=== PATIENT | female | born 1985 | race Caucasian/White ===

== ENCOUNTER 2022-04-09 10:18 | Emergency (ER) | payer OTHER, SELFPAY ==
[2022-04-09] VITALS (7 sets, daily range): BP systolic 100–125; BP diastolic 56–82; PULSE 85–102; RESP 16–21; TEMP 36.9–37.6; O2SAT 91–98; BMI 28.8
--- NOTE | ~2022-04-09 | CT_ITS ---
EXAMINATION: CT ANGIOGRAM OF THE CHEST WITH AND WITHOUT CONTRAST (CT PULMONARY ANGIOGRAM FOR PE) CLINICAL INFORMATION: Reason for Exam COVID-19, increased chest pain, high D-dimer COMPARISON: None TECHNIQUE: Prior to contrast administration, noncontrast localization images were obtained. Subsequently, multidetector volumetric imaging was performed from the thoracic inlet to below the diaphragms following the administration of 80 mL Omnipaque 350 intravenous contrast. No contrast reaction reported Sagittal, coronal, and MIP oblique sagittal reformatted images were obtained on the CT workstation, uploaded to PACS, and reviewed. This CT examination was performed using dose optimization techniques as appropriate, variously including the following: *Automated exposure control *Adjustment of mA and/or kV according to patient size (this includes techniques or standardized protocols for targeted exams where dose is matched to indication/reason for exam; i.e. extremities or head) *Use of iterative reconstruction technique Total exam dose-length product 227 mGy-cm FINDINGS: QUALITY OF STUDY/CONTRAST BOLUS: Satisfactory. PULMONARY ARTERIES: No central or segmental pulmonary emboli. THORACIC AORTA: No aneurysm or dissection. LUNG: There is mild atelectatic changes or scarring in both lung bases. There is groundglass attenuation in bilateral upper lobe anterior segment, question low-grade inflammatory or infectious etiology. PLEURA: No pleural effusion or pneumothorax. MEDIASTINUM: Normal heart size. No pericardial effusion. There are small shotty lymph nodes in the para-aortic and subcarinal space. There is a prominent anterior thymic soft tissue. No evidence of septal bowing or right heart strain. CHEST WALL/AXILLA: No axillary or internal mammary lymphadenopathy. OSSEOUS STRUCTURES: No acute or suspicious osseous abnormality. UPPER ABDOMEN: Unremarkable. No reflux of contrast into the hepatic veins to suggest elevated right heart pressures. CT/CT angio chest PE protocol IMPRESSION: No evidence of PE. No evidence of dissection or aneurysm. Nonspecific small mediastinal lymph nodes Bibasilar and and bilateral upper lobe anterior segment inflammatory process/atelectasis.. VTE: negative
--- NOTE | ~2022-04-09 | XR_ITS ---
EXAMINATION: XR CHEST CLINICAL INFORMATION: Covid positive and cough with chest pain COMPARISON: None TECHNIQUE: Frontal view of the chest was obtained. FINDINGS: The lungs are well-expanded and clear of acute acute pneumonic process. There is increased interstitial markings but no consolidation or pleural effusion. Heart size and perivascular is normal. No gross bony abnormality. XR/XR chest 1V IMPRESSION: Bilateral increase interstitial markings question interstitial pneumonitis. There is no consolidation or pleural effusion.
--- NOTE | 2022-04-09 11:56 | ECG_ITS ---
Test Reason : SOB Blood Pressure : / mmHG Vent. Rate : 094 BPM Atrial Rate : 094 BPM P-R Int : 160 ms QRS Dur : 080 ms QT Int : 346 ms P-R-T Axes : 071 083 065 degrees QTc Int : 432 ms Normal sinus rhythm Possible Left atrial enlargement Borderline ECG When compared with ECG of 01-JAN-2018 01:17, No significant change was found Referred By: Hermann Maxwell Electronically Signed By:ALFIE BRAVO
--- NOTE | 2022-04-09 12:01 | ED.URI ---
HPI - URI/Sore Throat General Chief Complaint: Upper Respiratory Symptoms Stated Complaint: SOB, +COVID Time Seen by Provider: 04/09/22 11:00 Source: patient Mode of arrival: ambulatory Limitations: no limitations History of Present Illness HPI Narrative: 36-year-old female who presents emergency department for evaluation shortness of breath, cough, chest pain and fever. The patient states that she was vaccinated with the Moderna COVID-19 vaccine x2 but did not receive a booster shot. She was diagnosed COVID-19 infection on 03/21/2022 (19 days) prior to evaluation. She states that her symptoms were improving but seemed to get worse proximally 5 days prior. She states that she is having shortness of breath his significant dyspnea on exertion. She continues to have fever as high as 101.9 degrees over the last 2 days. She states she has a cough which is occasionally productive of thick yellow sputum. Over the past 2 days she developed pain across her upper back which is new. She states the pain is a constant sharp pain which is 7/10. The pain is 10/10 with coughing and with taking a deep breath. She denied nausea, vomiting or diarrhea. She states she feels fatigued and her body aches. She was concerned that her symptoms were getting worse therefore she called an ambulance and came to the emergency department for evaluation. MD elicited complaint: other (Posterior chest pain) Pertinent past history: other (COVID-19 positive 03/21/2022) Onset (ago): day(s) (Nineteen) Consistency: constant Severity: severe Pain scale (0-10): 10 Description of mucous: green Able to tolerate fluids by mouth: Yes Exacerbating factors: exertion and deep breaths Relieving factors: nothing Context: other (COVID-19 box) Associated symptoms: fever, chills, myalgias, rhinorrhea, cough, chest pain and shortness of breath Treatments prior to arrival: acetaminophen and cold medicine Related Data Previous Rx's Medication Instructions Recorded albuterol sulfate 2.5 mg (3 mL) INHALATION Q4-6H PRN 04/09/22 #75 ml azithromycin 250 mg tablet See Rx Instructions .ROUTE 04/09/22 (Zithromax Z-Geovanni) .COMPLEX #6 tab morphine 15 mg immediate release 15 mg PO Q4-6H PRN #10 tab 04/09/22 tablet Allergies Allergy/AdvReac Type Severity Reaction Status Date / Time tramadol Allergy Severe stomach Verified 10/07/21 15:50 pains amoxicillin Allergy Mild negatively Verified 10/07/21 15:50 afftect brains. Review of Systems Review of Systems: Yes all other systems are reviewed and are negative Neurologic: Reports Abnormal speech present COUNT INCLUDES THE [facility] Past Medical History COUNT INCLUDES THE [facility] Narrative: Past medical history: Uterine fibroid, back pain secondary to disc disease. Past surgical history: L5-S1 disc surgery 1 and half years prior. Social history: She does smoke cigarettes but she has been cutting down and smokes 1-3 cigarettes per day. She started smoking when she was 13 years old (24 years). She she denies alcohol use. She occasionally smokes marijuana. Social History Social History Patient Tobacco Use Status: Current everyday Tobacco user Use of substances other than those prescribed or required for medical reasons: No Advance Directives: No Advance Directives Information Provided: No Physical Exam Vital Signs: Vital Signs: Last Vital Signs Temp 98.4 F 04/09/22 15:54 Pulse 92 04/09/22 15:54 Resp 16 04/09/22 15:57 BP 101/56 L 04/09/22 15:54 Pulse Ox 95 04/09/22 15:54 BMI result Body Mass Index 28.8 Const: Other: Awake, alert, female patient, she is coughing frequently during my interview and she appears to be in distress when she coughs secondary to her chest pain, she answers all questions appropriately and speaks in full sentences. HEENT: Head: Yes normal to inspection, Yes normocephalic and Yes atraumatic Ears: hearing grossly normal bilaterally General nose exam: Normal external nose present Face and sinus: Yes normal facial exam Mouth: Normal oral and palatal mucosa present, lip normal, tongue normal, oropharynx normal and moist mucous membranes Throat: Yes posterior oropharynx normal, Yes tonsils normal and Yes uvula midline Eyes: General: appearance normal, both eyes and all related structures Eyelids: Yes eyelids normal Conjunctivae: conjunctivae normal Sclerae: sclerae normal Corneas: corneas normal Pupils: Equal, round and reactive pupils present Neck: Neck: Yes normal visual inspection, Yes no lymphadenopathy, Yes trachea midline and Yes supple Thyroid: Thyroid normal Lymphatic: no lymphadenopathy noted Chest: Chest palpation & inspection: normal inspection of the chest and tenderness (Left posterior chest tenderness) Resp: Effort & Inspection: normal respiratory effort and able to speak in complete sentences Auscultation: rales (Diffuse) and rhonchi (Diffuse) Cardio: Rate: tachycardic Rhythm: regular rhythm Heart sounds: S1 normal heart sound present, S2 normal heart sound present and no murmurs GI: Inspection: Yes normal to inspection Palpation (GI): Soft to palpation, nontender and No hepatosplenomegaly present Auscultation: normal bowel sounds : General: Yes no CVA tenderness Back/Spine/Pelvis: Back: no CVA tenderness Thoracic/Lumbar Spine: thoracic and lumbar spine normal to inspection Skin: General skin exam: no rashes or lesions noted, no erythema and no jaundice Lesions: no lesions Rashes: no rashes Trauma: no lacerations or abrasions Wounds: no wounds Neuro: General: moves all extremities and no focal motor deficits Cranial nerves: Yes Equal, round and reactive pupils present Cognition (Neuro): normal cognition Speech: Abnormal speech present Motor exam (neuro): Motor abnormalities not present Extrem: General: Yes normal to inspection, Yes no pedal edema and Yes no calf tenderness Right upper extremity: normal to inspection Left upper extremity: normal to inspection Right lower extremity: normal to inspection Left lower extremity: normal to inspection Psych: Appearance: grossly normal Mental Status: mental status grossly normal Speech and movement: Normal speech and movement present Affect: normal affect Attitude: cooperative Thought process: Normal thought process present Insight: Good insight present (Psych) Course Course Course Narrative: 36-year-old female who tested positive for COVID-19 on 03/21/2022 (19 days prior) with worsening symptoms x5 days. Patient complains of cough, fever, fatigue and posterior chest pain. The patient's vital signs did reveal an elevated pulse of 102 otherwise were unremarkable. The patient does have tenderness with palpation of her posterior thoracic chest, left greater than right, lungs revealed diffuse rhonchi and wheezing. Differential includes but is not limited to bacterial pneumonia, COVID-19 pneumonia, pulmonary embolism, pleurisy. Laboratory evaluation was ordered. I will obtain a chest x-ray and EKG. Patient's pain was treated with Toradol 30 mg IV and Tylenol 975 mg orally. She was also ordered to get normal saline x1 L. 1422: Laboratory evaluation: WBC low 3600, platelet count low 154,000, anemia with an H&H of 11.7 and 36.4. Absolute lymphocyte count was low at 300. D-dimer was elevated 306. Radiology evaluation: Chest x-ray concerning for bilateral increased interstitial markings. The patient did not get any relief of her chest pain with the above treatment. She was ordered to get morphine 4 mg IV. Given the change in her chest pain over the past several days and her elevated D-dimer, I am concerned that she might have a pulmonary embolism therefore I did order CT pulmonary angiogram PE protocol. Patient was also ordered to get antibiotics for possible interstitial pneumonia, she was given ceftriaxone 1 g IV and Zithromax 500 mg IV. 1624: The patient's CT pulmonary angiogram was negative for PE but she does have bilateral interstitial pneumonia. This is most likely secondary to COVID however given her acute change and concerned that she may have a bacterial infection. The patient was prescribed Zithromax Z-Geovanni and albuterol nebulizer solution. She was also advised to take Tylenol and ibuprofen for pain and for pain not relieved by these medications she was prescribed morphine. She was given printed and verbal instructions and discharged home. MDM - URI/Sore Throat Lab Data Attestation: I reviewed the patient's lab results. Result diagrams: 04/09/22 13:51 04/09/22 13:51 Labs: Lab Results 04/09/22 04/09/22 04/09/22 Range/Units 13:51 13:51 13:51 WBC 3.6 L (4.8-10.8) X10*3/uL RBC 4.32 (4.20-5.50) X10*6/uL Hgb 11.7 L (12.0-16.0) g/dl Hct 36.4 L (37.0-47.0) % MCV 84.3 (80.0-98.0) fL MCH 27.1 (27.0-33.0) pg MCHC 32.1 (31.0-35.0) g/dl RDW 13.2 (11.0-16.0) % Plt Count 154 L (160-400) X10*3/uL MPV 11.6 (9.4-12.3) fL Immature Gran % (Auto) 0.3 (0.0-0.4) % Neut % (Auto) 86.7 H (45-73) % Lymph % (Auto) 9.4 L (20-40) % Kimball % (Auto) 3.0 (2-11) % Eos % (Auto) 0.6 (0-4) % Baso % (Auto) 0.0 (0-2) % Lymph # (Auto) 0.3 L (1.2-4.9) X10*3/uL Kimball # (Auto) 0.1 (0.1-1.2) X10*3/uL Eos # (Auto) 0.0 (0.0-0.4) X10*3/uL Baso # (Auto) 0.0 (0.0-0.2) X10*3/uL Abs Immat Gran (auto) 0.01 (0.00-0.03) X10*3/uL Absolute Neuts (auto) 3.2 (2.0-8.3) x10*3/uL Absolute Nucleated RBC 0.000 (0.0-0.012) X10*3/uL Nucleated RBC % (auto) 0.0 (0.0-0.2) /100WBC PT 14.4 H (9.9-13.0) SEC INR 1.3 H (0.9-1.1) APTT 34.3 (24.1-38.0) SEC D-Dimer High Sensitivty 306 NG/ML Sodium 134 L (135-145) mmol/L Potassium 3.8 (3.3-5.1) mmol/L Chloride 106 (96-108) mmol/L Carbon Dioxide 21 L (22-29) mmol/L Anion Gap 11 L (12-20) BUN 9 (9-16) mg/dL Creatinine 0.74 (0.5-1.4) mg/dL Estim Creat Clear Calc 106.0 Estimated GFR > 60 Random Glucose 177 H (60-115) mg/dL Lactic Acid (0.5-2.0) mmol/L Calcium 8.3 L (8.4-10.2) mg/dL Total Bilirubin 0.3 (0.0-1.0) mg/dL AST 15 (5-31) U/L ALT 10 (0-31) U/L Alkaline Phosphatase 54 (39-117) U/L Total Creatine Kinase 45 (26-140) U/L Troponin I High Sens (<3.5-17.0) ng/L Total Protein 6.6 (6.5-8.0) g/dL Albumin 3.9 (3.5-5.0) g/dL Lipase 9 (8-78) U/L Beta HCG, Quant < 2 mIU/mL 04/09/22 04/09/22 Range/Units 13:51 13:51 WBC (4.8-10.8) X10*3/uL RBC (4.20-5.50) X10*6/uL Hgb (12.0-16.0) g/dl Hct (37.0-47.0) % MCV (80.0-98.0) fL MCH (27.0-33.0) pg MCHC (31.0-35.0) g/dl RDW (11.0-16.0) % Plt Count (160-400) X10*3/uL MPV (9.4-12.3) fL Immature Gran % (Auto) (0.0-0.4) % Neut % (Auto) (45-73) % Lymph % (Auto) (20-40) % Kimball % (Auto) (2-11) % Eos % (Auto) (0-4) % Baso % (Auto) (0-2) % Lymph # (Auto) (1.2-4.9) X10*3/uL Kimball # (Auto) (0.1-1.2) X10*3/uL Eos # (Auto) (0.0-0.4) X10*3/uL Baso # (Auto) (0.0-0.2) X10*3/uL Abs Immat Gran (auto) (0.00-0.03) X10*3/uL Absolute Neuts (auto) (2.0-8.3) x10*3/uL Absolute Nucleated RBC (0.0-0.012) X10*3/uL Nucleated RBC % (auto) (0.0-0.2) /100WBC PT (9.9-13.0) SEC INR (0.9-1.1) APTT (24.1-38.0) SEC D-Dimer High Sensitivty NG/ML Sodium (135-145) mmol/L Potassium (3.3-5.1) mmol/L Chloride (96-108) mmol/L Carbon Dioxide (22-29) mmol/L Anion Gap (12-20) BUN (9-16) mg/dL Creatinine (0.5-1.4) mg/dL Estim Creat Clear Calc Estimated GFR Random Glucose (60-115) mg/dL Lactic Acid 1.0 (0.5-2.0) mmol/L Calcium (8.4-10.2) mg/dL Total Bilirubin (0.0-1.0) mg/dL AST (5-31) U/L ALT (0-31) U/L Alkaline Phosphatase (39-117) U/L Total Creatine Kinase (26-140) U/L Troponin I High Sens < 3.5 (<3.5-17.0) ng/L Total Protein (6.5-8.0) g/dL Albumin (3.5-5.0) g/dL Lipase (8-78) U/L Beta HCG, Quant mIU/mL ECG Data Attestation: I personally reviewed and interpreted this ECG as follows: Interpretation: 1209: Normal sinus rhythm rate of 94, normal ID interval, QRS duration QTC interval, no ST segment elevation, no ST segment depression, no PACs, no PVCs, no T-wave abnormalities, this is a normal EKG. Discharge Plan Discharge Clinical Impression: COVID-19 virus infection, Acute interstitial pneumonia, Pleuritic chest pain Patient Disposition: Home, Self-Care Instructions: Pneumonia (ED), COVID-19 (Coronavirus Disease 2019) (ED) Additional Instructions: Your chest x-ray was consistent with pneumonia. The CT pulmonary angiogram of the chest did not reveal any blood clots (pulmonary emboli) but is consistent with pneumonia in both lungs. This could be caused by the COVID-19 virus or by a bacteria. Given your asthma, I am starting you on an antibiotic for possible bacterial pneumonia. You received 2 antibiotics in the emergency department ceftriaxone 1 g IV and Zithromax 500 mg IV. Take Zithromax Z-Geovanni as prescribed. Use the albuterol inhaler with a spacer, 2 puffs every 4-6 hours as needed for wheezing and shortness of breath Use the albuterol nebulizer solution every 4 hours as needed for shortness of breath. When you use the never eyes are you should use a and a room with the door closed and then open a window to air out the room after use the nebulizer. Take ibuprofen 600 mg pills, 1 pills every 6 hours as needed for pain or fever Take Tylenol (acetaminophen) 2 pills every 4-6 hours as needed for pain or. For pain not relieved by ibuprofen or Tylenol take morphine 15 mg pills, 1 pill every 4 hours as needed for pain. This medication will make you sleepy, do not drive or work while taking this medication. Morphine is a narcotic medication and can be addicting. If you are concerned about addiction you can ask the pharmacist for less pills or do not get this prescription filled. Follow-up with your doctor in 2 days. Please return to the emergency department if your symptoms get worse or if you develop any symptoms that are concerning to you. See work note Prescriptions: New albuterol sulfate 2.5 mg /3 mL (0.083 %) solution for nebulization 2.5 mg inhalation Q4-6H PRN (Reason: shortness of breath or wheezing) Qty: 75 0RF azithromycin [Zithromax Z-Geovanni] 250 mg tablet See Rx Instructions .ROUTE .COMPLEX Qty: 6 0RF Rx Instructions: take 500 mg today (day 1), then 250 mg for 4 days (days 2-5) morphine 15 mg tablet 15 mg PO Q4-6H PRN (Reason: pain) Qty: 10 0RF Rx Instructions: The patient may ask for partial fill
[2022-04-09] MEDS: Ketorolac Tromethamine 15 MG/ML VIAL 30 MG IVPUSH (12:17)
[2022-04-09] MEDS: Albuterol Sulfate 90 MCG 8 GM INHALER 4 PUFF INHALE (12:18)
[2022-04-09] MEDS: 0.9 % Sodium Chloride 1,000 ML 999 ML IV (12:18)
[2022-04-09] MEDS: Acetaminophen 325 MG TABLET 975 MG PO (12:18)
[2022-04-09 13:58] LABS: MANUAL DIFF FLAG NO
[2022-04-09 14:01] LABS: Eosinophils Percent Auto 0.6 % (0-4); Hematocrit 36.4 % (37.0-47.0); Hemoglobin 11.7 g/dl (12.0-16.0); Imm Gran Abs Auto 0.01 X10*3/uL (0.00-0.03); Imm Gran Pct Auto 0.3 % (0.0-0.4); Lymphocytes Absolute Auto 0.3 X10*3/uL (1.2-4.9); Lymphocytes Percent Auto 9.4 % (20-40); Mean Corpuscular HGB Conc 32.1 g/dl (31.0-35.0); Mean Corpuscular Hemoglobin 27.1 pg (27.0-33.0); Mean Corpuscular Volume 84.3 fL (80.0-98.0); Mean Platelet Volume 11.6 fL (9.4-12.3); Monocytes Absolute Auto 0.1 X10*3/uL (0.1-1.2); Neutrophils Absolute Auto 3.2 x10*3/uL (2.0-8.3); Neutrophils Percent Auto 86.7 % (45-73); Platelet Count 154 X10*3/uL (160-400); Red Blood Count 4.32 X10*6/uL (4.20-5.50); Red Cell Distribution Width 13.2 % (11.0-16.0); White Blood Count 3.6 X10*3/uL (4.8-10.8)
[2022-04-09 14:06] LABS: INTERNATIONAL NORM RATIO 1.3 (0.9-1.1); Prothrombin Time 14.4 SEC (9.9-13.0)
[2022-04-09 14:08] LABS: D Dimer High Sensitivity 306 NG/ML
[2022-04-09 14:09] LABS: Partial Thromboplastin Time 34.3 SEC (24.1-38.0)
[2022-04-09 14:21] LABS: Alanine Aminotransferase 10 U/L (0-31); Albumin Level 3.9 g/dL (3.5-5.0); Alkaline Phosphatase 54 U/L (39-117); Anion Gap 11 (12-20); Aspartate Amino Transferase 15 U/L (5-31); Bilirubin Total 0.3 mg/dL (0.0-1.0); Blood Urea Nitrogen 9 mg/dL (9-16); Calcium 8.3 mg/dL (8.4-10.2); Carbon Dioxide 21 mmol/L (22-29); Chloride 106 mmol/L (96-108); Estimated Glomerular Filt Rate > 60; Glucose Random 177 mg/dL (60-115); Lipase 9 U/L (8-78); Potassium 3.8 mmol/L (3.3-5.1); Sodium 134 mmol/L (135-145); Total Protein 6.6 g/dL (6.5-8.0)
[2022-04-09 14:24] LABS: Troponin-I High Sensitivity < 3.5 ng/L (<3.5-17.0)
[2022-04-09] MEDS: cefTRIAXone sodium 1 GM in 0.9 % Sodium Chloride 50 ML IV (14:36)
[2022-04-09] MEDS: Morphine Sulfate 4 MG/ML CARTRIDGE IVPUSH ×2 (14:37→15:57)
[2022-04-09 14:43] LABS: HCG Quantitative < 2 mIU/mL
[2022-04-09] MEDS: iohexoL 350 MG/ML 100 ML INFUS..BTL 63 ML IV (15:06)
--- NOTE | 2022-04-09 16:00 | PC.NURSE ---
medicated per provider order, IV from CT displaced - pulled, 20 G IV placed right forearm.
[2022-04-09] MEDS: Azithromycin 500 MG in 0.9 % Sodium Chloride 250 ML 125 MG IV (16:13)
--- NOTE | 2022-04-09 16:16 | PC.NURSE ---
medicated per provider order, provider in room w pt.
== END 2022-04-09 19:05 | disposition home or self-care (01) ==
PROVIDERS: Emergency Provider Emergency Medicine Emergency Medical Services; PCP Internal Medicine
DX: U07.1 COVID-19 (principal); J84.178 Other interstitial pulmonary diseases with fibrosis in diseases classified elsewhere; R07.89 Other chest pain; R06.02 Shortness of breath; F17.200 Nicotine dependence, unspecified, uncomplicated
CPT/HCPCS: 36415; 71045; 71275; 80053; 82550; 83605; 83690; 84484; 84702; 85025; 85379; 85610; 85730; 87040; 93005; 96361; 96365; 96366; 96367; 96375; 96376; 99285; J0456; J0696; J1885; J2270; Q9967

== ENCOUNTER 2023-04-21 15:52 | Emergency (ER) | payer OTHER, SELFPAY ==
--- NOTE | ~2023-04-21 | US_ITS ---
EXAMINATION: ULTRASOUND PELVIC, COMPLETE CLINICAL INFORMATION: Pelvic pain. History uterine fibroid. COMPARISON: None. TECHNIQUE: Transvaginal: Used to better visualize pelvic structures Transabdominal: Not adequate for visualization Spectral Doppler and color Doppler exam was utilized. LMP: 2 weeks ago FINDINGS: UTERUS: Fibroid uterus. 1. Fundal central fibroid measuring 7.4 x 7.7 x 8 cm. 2. Left-sided fundal fibroid measuring 2.6 x 2.9 x 2.8 cm The uterus measures 14.7 x 1.6 x 11 cm. Endometrial stripe is obscured by the fibroids. ADNEXA: Left ovary not visualized. Right adnexa: Ovarian vascularity:Doppler demonstrates both arterial and venous vascular flow in the right ovary. No evidence of ovarian torsion. Right Ovary: 4.7 x 3 x 2.8 cm. Volume 21 mL. Anechoic cyst in the right ovary measuring 2.4 x 2 x 2.1 cm Cul-de-sac: No Fluid US/US pelvic and transvaginal IMPRESSION: 1. Fibroid uterus. 2. Anechoic cyst right ovary measuring 2.4 cm. 3. Left ovary not visualized.
--- NOTE | ~2023-04-21 | CT_ITS ---
EXAMINATION: CT ABDOMEN AND PELVIS WITHOUT CONTRAST CLINICAL INFORMATION: left lower abdominal pain. ? Ureteral obstruction. COMPARISON: No pertinent prior studies are available for comparison. TECHNIQUE: Multidetector volumetric imaging was performed from the superior aspect of the liver through the pubic symphysis without contrast per renal stone protocol. Sagittal and coronal reformatted images were obtained on the technologist workstation. This CT examination was performed using dose optimization techniques as appropriate, variously including the following: *Automated exposure control *Adjustment of mA and/or kV according to patient size (this includes techniques or standardized protocols for targeted exams where dose is matched to indication/reason for exam; i.e. extremities or head) *Use of iterative reconstruction technique DLP: 625 mGy-cm. FINDINGS: LUNG BASES: The visualized lung bases are unremarkable. LIVER, GALLBLADDER, BILIARY TREE: The non-contrast liver is normal in size, shape, and attenuation. No focal hepatic lesion or biliary ductal dilatation is present. Gallbladder surgically absent. PANCREAS: Unremarkable. SPLEEN: Unremarkable. ADRENAL GLANDS: Unremarkable. KIDNEYS AND URETERS: The kidneys are normal in size, shape, and attenuation. No hydronephrosis, hydroureter, or perinephric stranding. Tiny punctate bilateral intrarenal calculi. BLADDER: Decompressed GASTROINTESTINAL TRACT: Scattered colonic diverticulosis but no evidence for diverticulitis. Unremarkable appendix. Visualized small bowel unremarkable. ABDOMINAL WALL: No significant hernia is appreciated. LYMPHOVASCULAR STRUCTURES: No lymphadenopathy. The aorta is unremarkable.. PELVIC VISCERA: Anteroverted and enlarged fibroid uterus as noted on prior pelvic ultrasound uterus extends up to the level of the umbilicus. OSSEUS STRUCTURES: Unremarkable. CT/CT abdomen pelvis wo IV con IMPRESSION: No acute intra-abdominal process seen. No obstructive changes to the kidneys or ureters. Tiny punctate bilateral intrarenal nonobstructing calculi are noted. Enlarged fibroid uterus as noted on prior pelvic ultrasound.
[2023-04-21 16:09] VITALS: BP 125/83; BP 150/90; PULSE 106; PULSE 111; RESP 20; TEMP 37; O2SAT 100; BMI 35.2
--- NOTE | 2023-04-21 16:37 | ED_ITS ---
HPI - General Adult General Chief complaint: Abdominal Pain Stated complaint: ABD PAIN Time Seen by Provider: 04/21/23 16:16 Source: patient, RN notes reviewed and old records reviewed Mode of arrival: EMS Limitations: no limitations History of Present Illness HPI narrative: 37-year-old female presents for evaluation of left lower abdominal pain Patient reports that she was told she has a very large uterine fibroid that she found out about 1 year ago She states that she has seen 2 separate OBGYN doctor regarding the thyroid but was told that it is too dangerous to take it out without doing a partial hysterectomy. Patient states that she has had intermittent pressure of her lower abdomen radiating to her back from this but never severe pain like she had today At the time of my evaluation the patient states that her pain has resolved but she has a slight pressure She did receive fentanyl and Zofran IM by EMS prior to arrival Denies any GI or symptoms Patient's current OBGYN is Dr. Blu Vuong in [facility] Patient denies any fevers, chills Related Data Previous Rx's Medication Instructions Recorded albuterol sulfate 90 mcg/actuation 1 inh inhalation QID PRN shortness 09/07/22 aerosol inhaler (Ventolin HFA) of breath or wheezing #8.5 grams albuterol sulfate 2.5 mg/3 mL 2.5 mg (3 mL) inhalation Q6H #90 mL 12/10/22 (0.083 %) solution for nebulization azithromycin 250 mg tablet See Rx Instructions PO .COMPLEX #6 12/10/22 tabs methylprednisolone 4 mg tablets in 4 mg PO DAILY #21 ea 12/10/22 a dose pack (Medrol (Geovanni)) lidocaine 5 % topical patch 1 patch topical DAILY #15 ea 04/21/23 oxycodone 5 mg tablet 5 mg PO Q6H PRN severe pain (scale 04/21/23 score 7-10) #12 tabs Allergies Allergy/AdvReac Type Severity Reaction Status Date / Time tramadol Allergy Severe stomach Verified 12/10/22 14:29 pains amoxicillin Allergy Mild negatively Verified 12/10/22 14:29 afftect brains. Review of Systems Constitutional: Constitutional: Reports as per HPI, Denies chills, Denies fatigue, Denies fever(s) and Denies headache(s) ENT: Denies headache(s) Cardiovascular: Cardiovascular: Denies chest pain and Denies dyspnea Respiratory: Respiratory: Denies cough and Denies dyspnea Gastrointestinal: Gastrointestinal: Reports abdominal pain, Denies const ipation, Denies nausea and Denies vomiting Genitourinary: Genitourinary: Denies dysuria Neurologic: Denies headache(s) and Denies focal weakness Endocrine: Endocrine: Denies fatigue PMFSH Social History Social History Alcohol intake: unknown Patient Tobacco Use Status: Former Tobacco user Smoked in Last 30 Days: No Use of substances other than those prescribed or required for medical reasons: Unknown Advance Directives: No Advance Directives Information Provided: No Patient : No Physical Exam ED Vital Signs: Vital Signs - 24 hr 04/21/23 16:09 Temperature 98.6 F Pulse Rate 106 H Respiratory Rate 20 Blood Pressure 125/83 Pulse Oximetry 100 Oxygen Delivery Method Room Air BMI result Body Mass Index 35.2 Const General: healthy appearing, comfortable, no acute distress, alert and awake Nutritional Appearance: well nourished Orientation/consciousness: patient oriented x3 HENMT Head: Yes normocephalic and Yes atraumatic Throat: Yes posterior oropharynx normal Eyes Eyelids: Yes eyelids normal Conjunctivae: conjunctivae normal Sclerae: sclerae normal Corneas: corneas normal Pupils: Equal, round and reactive pupils present EOM: EOMs intact bilaterally Neck Neck: Yes full ROM Resp Effort & Inspection: normal respiratory effort, able to speak in complete sentences and not labored Cardio Rate: regular rate Rhythm: regular rhythm GI Inspection: No distended Palpation (GI): Soft to palpation, not firm, Tenderness to palpation present (GI) in the LLQ and suprapubicly, no guarding and not rigid Auscultation: normoactive bowel sounds Skin General skin exam: no rashes or lesions noted and elasticity normal Neuro General: patient oriented x3 Cranial nerves: Yes Equal, round and reactive pupils present and Yes Bilaterally intact EOM present Cognition (Neuro): normal cognition Extrem Other: Moving all extremities well without any obvious deformities Course Reevaluation(s) Reevaluation #1: Patient had some blood in her urine, started CT scan abdomen pelvis to rule out obstructive uropathy. CT scan does not show any acute findings. Discussed all this with the patient. She reports that she has follow-up with OBGYN on Monday. Her pain resolved with morphine, again to return, so urine 1 more dose per her request to hold her within the night. Should be discharged with oxycodone and lidocaine patches. Patient will return for new or worsening symptoms. her will drive her home Time: 22:00 Medications Administered Discontinued Medications Generic Name Dose Route Start Last Admin Trade Name Marco PRN Reason Stop Dose Admin Sodium Chloride 1,000 mls @ 999 mls/hr 04/21/23 16:30 04/21/23 18:36 Ns IV 04/21/23 17:30 Infused .Q1H1M NAFISA Infusion Ketorolac Tromethamine 30 mg 04/21/23 17:07 04/21/23 17:17 Ketorolac Tromethamine 30 Mg/Ml Vial IVPUSH 04/21/23 17:08 30 mg ONCE ONE Administration Morphine Sulfate 4 mg 04/21/23 18:14 04/21/23 18:41 Morphine Sulfate 4 Mg/Ml Cartridge IVPUSH 04/21/23 18:15 4 mg ONCE ONE Administration Protocol Ondansetron HCl 4 mg 04/21/23 18:14 04/21/23 18:41 Ondansetron Hcl 4 Mg/2 Ml Vial IVPUSH 04/21/23 18:15 4 mg ONCE ONE Administration Medical Decision Making Medical Decision Making [facility] Narrative: 37-year-old female presents for evaluation of lower abdominal pain in the area of a known uterine fibroid. Will get an ultrasound to rule out ovarian torsion as her pain is mostly left-sided. Will get basic labs and UA. Currently the patient's pain has improved received fentanyl via EMS. Differential Diagnosis Uterine fibroid Obstructive uropathy UTI Ovarian torsion Ovarian cyst Lab Data 04/21/23 16:49 04/21/23 16:49 Labs: Lab Results 04/21/23 04/21/23 04/21/23 Range/Units 16:49 16:49 20:03 WBC 11.2 H (4.8-10.8) X10*3/uL RBC 4.67 (4.20-5.50) X10*6/uL Hgb 12.8 (12.0-16.0) g/dl Hct 39.5 (37.0-47.0) % MCV 84.6 (80.0-98.0) fL MCH 27.4 (27.0-33.0) pg MCHC 32.4 (31.0-35.0) g/dl RDW 14.6 (11.0-16.0) % Plt Count 291 D (160-400) X10*3/uL MPV 10.7 (9.4-12.3) fL Immature Gran % (Auto) 0.5 H (0.0-0.4) % Neut % (Auto) 75.7 H (45-73) % Lymph % (Auto) 18.1 L (20-40) % [place] % (Auto) 5.1 (2-11) % Eos % (Auto) 0.4 (0-4) % Baso % (Auto) 0.2 (0-2) % Lymph # (Auto) 2.0 (1.2-4.9) X10*3/uL [place] # (Auto) 0.6 (0.1-1.2) X10*3/uL Eos # (Auto) 0.1 (0.0-0.4) X10*3/uL Baso # (Auto) 0.0 (0.0-0.2) X10*3/uL Abs Immat Gran (auto) 0.06 H (0.00-0.03) X10*3/uL Absolute Neuts (auto) 8.4 H (2.0-8.3) x10*3/uL Absolute Nucleated RBC 0.000 (0.0-0.012) X10*3/uL Nucleated RBC % (auto) 0.0 (0.0-0.2) /100WBC Sodium 142 (135-145) mmol/L Potassium 4.4 (3.3-5.1) mmol/L Chloride 111 H (96-108) mmol/L Carbon Dioxide 23 (22-29) mmol/L Anion Gap 12 (12-20) BUN 12 (9-16) mg/dL Creatinine 0.85 (0.5-1.4) mg/dL Estim Creat Clear Calc 86.5 Estimated GFR > 60 Random Glucose 89 (60-115) mg/dL Calcium 10.5 H D (8.4-10.2) mg/dL Urine Color Dark Yellow Urine Appearance Cloudy Urine pH 8.0 (5.0-9.0) Ur Specific [place] >= 1.030 H (1.005-1.025) Urine Protein 30 (1+) H (Neg-Trace) mg/dL Urine Glucose (UA) Negative (Negative) mg/dL Urine Ketones 40 (Negative) mg/dL Urine Blood Small (1+) H (Negative) Urine Nitrite Negative (Negative) Ur Leukocyte Esterase Negative (Negative) Urine Test (NEGATIVE) 04/21/23 Range/Units 20:03 WBC (4.8-10.8) X10*3/uL RBC (4.20-5.50) X10*6/uL Hgb (12.0-16.0) g/dl Hct (37.0-47.0) % MCV (80.0-98.0) fL MCH (27.0-33.0) pg MCHC (31.0-35.0) g/dl RDW (11.0-16.0) % Plt Count (160-400) X10*3/uL MPV (9.4-12.3) fL Immature Gran % (Auto) (0.0-0.4) % Neut % (Auto) (45-73) % Lymph % (Auto) (20-40) % [place] % (Auto) (2-11) % Eos % (Auto) (0-4) % Baso % (Auto) (0-2) % Lymph # (Auto) (1.2-4.9) X10*3/uL [place] # (Auto) (0.1-1.2) X10*3/uL Eos # (Auto) (0.0-0.4) X10*3/uL Baso # (Auto) (0.0-0.2) X10*3/uL Abs Immat Gran (auto) (0.00-0.03) X10*3/uL Absolute Neuts (auto) (2.0-8.3) x10*3/uL Absolute Nucleated RBC (0.0-0.012) X10*3/uL Nucleated RBC % (auto) (0.0-0.2) /100WBC Sodium (135-145) mmol/L Potassium (3.3-5.1) mmol/L Chloride (96-108) mmol/L Carbon Dioxide (22-29) mmol/L Anion Gap (12-20) BUN (9-16) mg/dL Creatinine (0.5-1.4) mg/dL Estim Creat Clear Calc Estimated GFR Random Glucose (60-115) mg/dL Calcium (8.4-10.2) mg/dL Urine Color Urine Appearance Urine pH (5.0-9.0) Ur Specific [place] (1.005-1.025) Urine Protein (Neg-Trace) mg/dL Urine Glucose (UA) (Negative) mg/dL Urine Ketones (Negative) mg/dL Urine Blood (Negative) Urine Nitrite (Negative) Ur Leukocyte Esterase (Negative) Urine Test NEGATIVE (NEGATIVE) Discharge Plan Discharge Clinical Impression: Abdominal pain Patient Disposition: Home, Self-Care Instructions: Abdominal Pain (ED) Additional Instructions: Your blood work was reassuring. Your CT scan did not show any evidence of kidney stones. Your ultrasound showed an approximately 8 cm fibroid in the uterus as well as an approximately 3 cm left-sided fibroid Use Motrin or Tylenol for pain. You may use oxycodone for more severe, breakthrough pain You may also use lidocaine patches Follow-up with OBGYN on Monday as planned Return for new or worsening symptoms Prescriptions: New oxycodone 5 mg tablet 5 mg PO Q6H PRN (Reason: severe pain (scale score 7-10)) Qty: 12 0RF Rx Instructions: Partial Fill upon patient request. lidocaine 5 % adhesive patch,medicated 1 patch topical DAILY Qty: 15 0RF Rx Instructions: leave on most painful area for up to 12 hrs No Action albuterol sulfate [Ventolin HFA] 90 mcg/actuation HFA aerosol inhaler 1 inh inhalation QID PRN (Reason: shortness of breath or wheezing) Qty: 8.5 1RF azithromycin 250 mg tablet See Rx Instructions PO .COMPLEX Qty: 6 0RF Rx Instructions: For 250 mg dose pack: take 500 mg today (day 1), then 250 mg for 4 days (days 2-5) PO methylprednisolone [Medrol (Geovanni)] 4 mg tablets,dose pack 4 mg PO DAILY Qty: 21 0RF albuterol sulfate 2.5 mg /3 mL (0.083 %) solution for nebulization 2.5 mg inhalation Q6H Qty: 90 0RF
[2023-04-21 16:51] LABS: MANUAL DIFF FLAG NO
[2023-04-21 16:54] LABS: Basophils Percent Auto 0.2 % (0-2); Eosinophils Absolute Auto 0.1 X10*3/uL (0.0-0.4); Eosinophils Percent Auto 0.4 % (0-4); Hematocrit 39.5 % (37.0-47.0); Hemoglobin 12.8 g/dl (12.0-16.0); Imm Gran Abs Auto 0.06 X10*3/uL (0.00-0.03); Imm Gran Pct Auto 0.5 % (0.0-0.4); Lymphocytes Percent Auto 18.1 % (20-40); Mean Corpuscular HGB Conc 32.4 g/dl (31.0-35.0); Mean Corpuscular Hemoglobin 27.4 pg (27.0-33.0); Mean Corpuscular Volume 84.6 fL (80.0-98.0); Mean Platelet Volume 10.7 fL (9.4-12.3); Monocytes Absolute Auto 0.6 X10*3/uL (0.1-1.2); Monocytes Percent Auto 5.1 % (2-11); Neutrophils Absolute Auto 8.4 x10*3/uL (2.0-8.3); Neutrophils Percent Auto 75.7 % (45-73); Platelet Count 291 X10*3/uL (160-400); Red Blood Count 4.67 X10*6/uL (4.20-5.50); Red Cell Distribution Width 14.6 % (11.0-16.0); White Blood Count 11.2 X10*3/uL (4.8-10.8)
[2023-04-21 17:10] LABS: Anion Gap 12 (12-20); Blood Urea Nitrogen 12 mg/dL (9-16); Calcium 10.5 mg/dL (8.4-10.2); Carbon Dioxide 23 mmol/L (22-29); Chloride 111 mmol/L (96-108); Creatinine Clr Calc Pharmacy 86.5; Estimated Glomerular Filt Rate > 60; Glucose Random 89 mg/dL (60-115); Potassium 4.4 mmol/L (3.3-5.1); Sodium 142 mmol/L (135-145)
[2023-04-21] MEDS: 0.9 % Sodium Chloride 1,000 ML 999 ML IV (17:16)
[2023-04-21] MEDS: Ketorolac Tromethamine 30 MG/ML VIAL IVPUSH (17:17)
--- NOTE | 2023-04-21 17:18 | PC.NURSE ---
pt iv placed, pt writhing in stretcher, breathing heavily and appearing in pain. iv established, pt medicated per emar. pending effect, awaiting us.
[2023-04-21] MEDS: Morphine Sulfate 4 MG/ML CARTRIDGE IVPUSH ×2 (18:41→22:08)
[2023-04-21] MEDS: ondansetron HCL 4 MG/2 ML VIAL IVPUSH (18:41)
[2023-04-21 20:07] LABS: UPreg QC Valid YES; Urine Pregnancy NEGATIVE (NEGATIVE)
[2023-04-21 20:08] LABS: Appearance Urine Cloudy; Color Urine Dark Yellow; Glucose Urine UA Negative (Negative); Leukocyte Esterase Urine Negative (Negative); Nitrite Urine Negative (Negative); Specific Gravity - Urine >= 1.030 (1.005-1.025); UMIC TRIGGER UACC YES; Urine Blood Small (1+) (Negative); Urine Ketones 40 mg/dL (Negative); Urine Protein 30 (1+) mg/dL (Neg-Trace)
[2023-04-21 22:19] LABS: Bacteria Urine 2+ (None Seen); Hyaline Casts Urine 0-2 /LPF (0-2); WBC Urine 0-5 /HPF (0-5)
== END 2023-04-21 22:20 | disposition home or self-care (01) ==
PROVIDERS: Physician Assistant; Emergency Provider Emergency Medicine
DX: R10.32 Left lower quadrant pain (principal)
CPT/HCPCS: 36415; 74176; 76830; 76856; 80048; 81001; 81025; 85025; 96361; 96374; 96375; 96376; 99284; 99285; J1885; J2270; J2405

== ENCOUNTER 2024-04-30 12:56 | Outpatient (AMB) | payer OTHER, SELFPAY ==
--- OUTSIDE RECORDS SUMMARY | 2024-04-30 12:58 | XMS_ITS | Continuity of Care Document ---
Author Organization [facility] Address [address] [place] [address]- Care Team Providers Care Checker In Name Role Phone Pebbles Montez MD, Jenny [facility] Phys [id number] Date(s): 03/15/21 - 04/14/21 [facility] [place] [facility] [address] [place], [place] [address] Attending Physician: Patricia Singer Admitting Physician: AdmPatricia brizuela Referring Physician: AdmPatricia brizuela Allergies, Adverse Reactions, Alerts Substance Reaction Severity Status amoxicillin Active predniSONE Hallucinogen dependence, episodic Active naltrexone Active TraMADol Hydrochloride 1 Act kevan 1stomach pain, brain fog Medications Ativan 1 mg oral tablet 1 tablet = 1 mg, By Mouth, 3 times a day, 0 Refills, Maintenance, 03/05/21 20:11:00 EDT, Partial fill upon patient request if the prescription is for a schedule II opioid drug. Start Date: 03/05/21 Status: Ordered Zofran 4 mg oral tablet 1 tablet = 4 mg, By Mouth, Every 8 hours, # 12 tablet, 0 Refills, Maintenance, 03/05/21 21:49:00 EDT, Tablet, [facility]/pharmacy #[id number], Partial fill upon patient request if the prescription is for a schedule II opioid drug., 163, cm, 03/05/21 20:10:00 EDT,... Start Date: 03/05/21 Status: Ordered Social History Social History Type Response Smoking Status 10 or more cigarette s (1/2 pack or more)/day in last 30 days entered on: 03/15/19 Sex
--- OUTSIDE RECORDS SUMMARY | 2024-04-30 12:58 | XMS_ITS | Continuity of Care Document ---
Author Organization [facility] [employer] [facility] Address [address] [place] [address]- Care Team Providers Care Route Supervisor Name Role Phone Pebbles Montez MD, Jenny Primary Care Phys ician [facility] [id number] Date(s): 06/09/23 - 07/09/23 [facility] [facility] [address] [place], [place] [address] Attending Physician: Patricia Singer Admitting Physician: AdmPatricia brizuela Referring Physician: AdmtrPatricia Allergies, Adverse Reactions, Alerts Substance Reaction Severity Status amoxicillin Moderate Active predniSONE Hallucinogen dependence, episodic Active naltrexone Active TraMADol Hydrochloride 1 Act kevan 1stomach pain, brain fog Medications acetaminophen-oxyCODONE 325 mg-5 mg oral tablet 1, tablet, By Mouth, Every 4 hours, PRN, # 5 tablet, Refills 0, Tot. Refills 0, Maintenance, as needed for pain, 06/14/21 14:16:00 EDT, Route to Pharmacy Electronically, [facility]/pharmacy #[id number] Tablet Start Date: 06/14/21 Status: Ordered Ativan 1 mg oral tablet 1 tablet = 1 mg, By Mouth, 3 times a day, 0 Refills, Maintenance, 03/05/21 20:11:00 EDT, Partial fill upon patient request if the prescription is for a schedule II opioid drug. Start Date: 03/05/21 Status: Ordered LORazepam 1 mg oral tablet 1 tablet = 1 mg, By Mouth, 2 times a day, PRN as needed for anxiety, 0 Refills, Maintenance, 06/14/21 11:16:00 EDT, Tablet, Partial fill upon patient request if the prescription is for a schedule II opioid drug. Start Date: 06/14/21 Status: Ordered Zofran 4 mg oral tablet 1 tablet = 4 mg, By Mouth, Every 8 hours, # 12 tablet, 0 Refills, Maintenance, 03/05/21 21:49:00 EDT, Tablet, [facility]/pharmacy #[id number], Partial fill upon patient request if the prescription is for a schedule II opioid drug., 163, cm, 03/05/21 20:10:00 EDT,... Start Date: 03/05/21 Status: Ordered Problem List Condition Confirmation Course Effective Dates Status Health St atus Informant Bartholin's cyst Confirmed Active Chronic pelvic pain syndrome Confirmed Active Fibroid uterus Confirmed Active Social History Social History Type Response Smoking Status 10 or more cigarette s (1/2 pack or more)/day in last 30 days entered on: 03/15/19 Sex Patient Care team information Care Team Personnel Name: Jenny Cuevas MD Position: Reference Physician Member Role: PCP Address: Address: [address] [place] [address] [place], [place] [address] [[email or web address] Name: Regine WHITE, Kavita Position: S RN Supv Member Role: Primary Care Nurse Care Team Related Persons Name: USAMA BOB Address: home [address], [place] Name: ALIYAH BOB Address: home [address] [place], [place] Name: MARCE MENDIOLA Address: home [address] [place] [id number]
--- OUTSIDE RECORDS SUMMARY | 2024-04-30 12:58 | XMS_ITS | Continuity of Care Document ---
Author Organization [facility] ter Address [address] [place] [id number]- Care Team Providers Care Landscape Technician Name Role Phone Jenny Cuevas MD Primary Care Phys ician Encounter [facility] [place] Date(s): 03/22/24 - 03/24/[address] [address]- Discharge Disposition: A-D/C Home Attending Physician: Chelsie Rubio MD Admitting Physician: Chelsie Rubio MD Referring Physician: Chelsie Rubio MD Allergies, Adverse Reactions, Alerts Substance Reaction Severity Status amoxicillin blacked out change in behavior/mental status Moderate Active naltrexone panic attack/aniexty Active Suboxone blacked out Active TraMADol Hydrochloride 1 gi upset Act kevan predniSONE Hallucinogen dependence, episodic Active 1stomach pain, brain fog Medications acetaminophen 325 mg oral tablet See Instructions, 3 tablet By Mouth Every 6-8 hours for the first 3 days, then every 6-8 hours as needed for pain afterwards not to exceed 4000 mg/day, # 50 tablet, Refills 1, Tot. Refills 1, Maintenance, 03/24/24 10:44:00 EDT, Instructions Replace R... Start Date: 03/24/24 Status: Ordered Acetaminophen Tablet 975 mg, Tablet, By Mouth, 03/24/24 10:00:00 EDT Start Date: 03/24/24 Stop Date: 03/24/24 Status: Completed Albuterol (Eqv-ProAir HFA) 90 mcg/inh inhalation aerosol 2 puffs, Inhalation, PRN Wheezing/Shortness of Breath, 0 Refills, Maintenance, 03/20/24 8:51:00 EDT, Partial fill upon patient request if the prescription is for a schedule II opioid drug. Start Date: 03/20/24 Status: Ordered albuterol 2.5 mg/0.5 mL (0.5%) inhalation solution 0.5 mL = 2.5 mg, Neb, 4 times a day, PRN as needed for wheezing, # 30 each, 0 Refills, Maintenance,03/20/24 8:53:00 EDT, Solution, Partial fill upon patient request if the prescription is for a schedule II opioid drug. Start Date: 03/20/24 Status: Ordered docusate sodium 100 mg oral capsule 100 mg, 1, capsule, By Mouth, 2 times a day, PRN, # 60 capsule, Refills 0, Tot. Refills 0, Maintenance, for constipation, 03/24/24 10:44:00 EDT, Route to Pharmacy Electronically, [facility], Partial fill upon patient request if the presc... Start Date: 03/24/24 Status: Ordered Dramamine 50 mg oral tablet 1 tablet = 50 mg, By Mouth, Every 6 hours, PRN for motion sickness, # 36 tablet, 0 Refills, Maintenance, 11/27/23 15:54:00 EST, Tablet, [facility]/pharmacy #[id number], Partial fill upon patient request if the prescription is for a schedule II opioid drug., 83.91,... Start Date: 11/27/23 Status: Ordered gabapentin 600 mg oral tablet 1 tablet = 600 mg, By Mouth, Daily, # 30 tablet, 1 Refills, Maintenance, 02/26/24 15:30:00 EDT, [facility]/pharmacy #[id number], Partial fill upon patient request if the prescription is for a schedule II opioid drug., 78.47, kg, 02/26/24 15:23:00 EDT, Dry Weight Start Date: 02/26/24 Status: Ordered ibuprofen 600 mg oral tablet 600 mg, 1, tablet, By Mouth, Every 6 hours, not to exceed 3200 mg/day every 6 hours for the first 3days, then every 6 hours as needed for pain, # 40 tablet, Refills 1, Tot. Refills 1, Maintenance, 03/24/24 10:44:00 EDT, Route to Pharmacy Electronical... Start Date: 03/24/24 Status: Ordered Ibuprofen Tablet 600 mg, Tablet, By Mouth, 03/24/24 10:00:00 EDT Start Date: 03/24/24 Stop Date: 03/24/24 Status: Completed MiraLax oral powder for reconstitution = 17 Gm, By Mouth, Daily, dissolve in water before taking until having normal bowel movements, # 255 Gm, 0 Refills, Maintenance, 03/24/24 10:45:00 EDT, REC Powder, [facility], Partial fill upon patient request if the prescription is for... Start Date: 03/24/24 Status: Ordered Nicorette Cinnamon Surge 4 mg oral transmucosal gum 1 each = 4 mg, Chew, Every 2 hours, PRN as needed for smoking cessation, # 160 each, 0 Refills, Acute 05/24/24 12:00:00 EDT, 03/24/24 11:55:00 EDT, Gum, [facility], Partial fill upon patient request if the prescription is for a schedule... Start Date: 03/24/24 Stop Date: 05/24/24 Status: Ordered oxyCODONE 5 mg oral tablet See Instructions, PRN, 0.5-1 tablet By Mouth Every 4-6 hours prn pain, not controlled by Ibuprofen and acetaminophen, # 10 tablet, Refills 0, Tot. Refills 0, Acute 04/26/24 11:00:00 EDT, as needed for pain, 03/24/24 10:44:00 EDT, Instructions Replace... Start Date: 03/24/24 Stop Date: 04/26/24 Status: Ordered OxyCODONE IR Tablet 5 mg, Tablet, By Mouth, Every 4 hours, PRN for Pain , Severe, Routine, 03/22/24 15:43:00 EDT Start Date: 03/22/24 Stop Date: 03/29/24 Status: Ordered Problem List Condition Confirmation Course Effective Dates Status Health St atus Informant Bartholin's cyst Confirmed Active Chronic pelvic pain syndrome Confirmed Active Fibroid uterus Confirmed Active Results Radiology Reports * Exam Date Time Procedure Performing Provider Status 03/22/24 10:37 PM MRI Brain W/O Contrast Bhaskar Lockett ; Thanh (Verified) Notes: (MRI Brain W/O Contrast) Reason For Exam: Other: RESULT: MRI Brain W/O Contrast MRI Brain W/O Contrast INDICATION: Reason: Other:; Clinical Question(s): Infarction; Order Comment: Please see Reference Text for complete list of contraindications Infarction TECHNIQUE: MRI of the brain was performed without contrast utilizing sagittal T1, axial T2, axial FLAIR, axial SWAN, and axial DWI sequences. COMPARISON: Head CT and CTA 03/22/2024 FINDINGS: Image quality is degraded by patient motion. Within this technical confine: BRAIN and EXTRA-AXIAL SPACES: The ventricles and sulci are normal in size. No abnormal signal is seen in the brain parenchyma, and there is no evidence of restricted diffusion to suggest acute infarction. The brainstem and cerebellum are normal. There is no hemorrhage, midline shift, or mass effect. There is no extra-axial collection. Flow voids are preserved in the dominant intracranial vessels. EXTRACRANIAL SOFT TISSUES: Orbits are unremarkable. There is mild scattered mucosal thickening in the paranasal sinuses, without fluid levels. BONES: Marrow signal is preserved. IMPRESSION: Within confines of motion: No significant intracranial abnormality. A similar preliminary report was provided by [facility]. WSN: [id number] Ordering Physician: Grazyna Goodwin Dictated By: Ludivina Sharma MD Dictated Date/Time: 03/23/24 9:34 am Reviewed By: Ludivina Sharma MD Signed By: Ludivina Sharma MD Signed Date/Time: 03/23/24 9:34 am Transcribed By: BRIAN Transcribed Date/Time: 03/23/24 9:31 am * Exam Date Time Procedure Performing Provider Status 03/22/24 6:[address] Angio Neck Hyperacute Stroke Jayde Stewart nd; Auth (Verified) Notes: (CT Angio Neck Hyperacute Stroke) Reason For Exam: Stroke;Other: RESULT: CT Angio Neck Hyperacute Stroke CT Angio Head Hyperacute Stroke, CT Angio Neck Hyperacute Stroke Reason: Other:; Stroke; Clinical Question(s): Other:; Hematoma Aneurysm; Order Comment: CLJ-5 2023 22:38:35 EDT, vrad scanned provider notified via tiger / Other: TECHNIQUE: CT angiogram of the head and neck was performed after bolus administration of intravenous contrast. 100 mL of Omnipaque 300 was administered intravenously. Coronal and sagittal MIP reformatted images were obtained. Additional 3-D images were created on a separate workstation under concurrent supervision by the attending radiologist. All stenoses are measured using NASCET criteria. Weight-based protocol using automatic tube modulation was used to optimize exposure parameters. RADIATION DOSE PARAMETERS: CTDIvol Body: 13.30 mGy, DLP Body: 544 mGy*cm. CTDIvol Head: 46.80 mGy, DLP Head: 774 mGy*cm. COMPARISON: Noncontrast CT head performed concurrently. FINDINGS: CTA OF THE NECK: Arch: There is a three vessel aortic arch. The origins of the supra aortic vessels are patent. Right carotid system: The common carotid and cervical internal carotid arteries are patent. No stenosis (0%) by NASCET criteria. There is no dissection or aneurysm. Left carotid system: The common carotid and cervical internal carotid arteries are patent. No stenosis (0%) by NASCET criteria. There is no dissection or aneurysm. There is a co-dominant vertebral artery system. Right vertebral: No significant stenosis. No evidence of dissection or aneurysm. Left vertebral: No significant stenosis. No evidence of dissection or aneurysm. Other: Soft tissues and bones: No evidence of lymphadenopathy or mass. The thyroid is unremarkable. There is a nasal airway support device in place. There are curvilinear dependent airspace opacities in both lungs probably reflecting atelectasis. Multiple prominent but not pathologically enlarged mediastinal lymph nodes, largest 9 mm short axis. No acute osseous abnormality. Mild degenerative changes are noted at C5-C6 with loss of intervertebral disc height and small endplate osteophytes. CTA OF THE HEAD: Anterior circulation: Bilateral intracranial ICAs and their ELVIS and MCA branches are patent. There is no significant stenosis, proximal cutoff, aneurysm, or vascular malformation. Posterior circulation: Bilateral intracranial vertebral arteries, the basilar artery, and bilateralsuperior cerebellar and posterior cerebral branches are patent. There is no significant stenosis, proximal cutoff, aneurysm, or vascular malformation. Veins: Major dural venous sinuses are patent. Other: Soft tissues and bones: No midline shift or effacement of the basal cisterns. No space-occupying hemorrhage. No territorial loss of orantes-white matter differentiation. Orbits are unremarkable. There is mild scattered mucosal thickening in the paranasal sinuses without fluid levels. There is parietal scalp swelling, left greater than right. IMPRESSION: No proximal occlusion or high grade stenosis in the major arteries of the head and neck. A similar preliminary report was provided by [facility]. WSN: [id number] Ordering Physician: Grazyna Goodwin Dictated By: Ludivina Sharma MD Dictated Date/Time: 03/23/24 9:30 am Reviewed By: Ludivina Sharma MD Signed By: Ludivina Sharma MD Signed Date/Time: 03/23/24 9:30 am Transcribed By: BRIAN Transcribed Date/Time: 03/23/24 9:22 am * Exam Date Time Procedure Performing Provider Status 03/22/24 6:[address] Angio Head Hyperacute Stroke Jayde Stewart nd; Auth (Verified) Notes: (CT Angio Head Hyperacute Stroke) Reason For Exam: Stroke;Other: RESULT: CT Angio Head Hyperacute Stroke CT Angio Head Hyperacute Stroke, CT Angio Neck Hyperacute Stroke Reason: Other:; Stroke; Clinical Question(s): Other:; Hematoma Aneurysm; Order Comment: CLJ-5 2023 22:38:35 EDT, vrad scanned provider notified via tiger / Other: TECHNIQUE: CT angiogram of the head and neck was performed after bolus administration of intravenous contrast. 100 mL of Omnipaque 300 was administered intravenously. Coronal and sagittal MIP reformatted images were obtained. Additional 3-D images were created on a separate workstation under concurrent supervision by the attending radiologist. All stenoses are measured using NASCET criteria. Weight-based protocol using automatic tube modulation was used to optimize exposure parameters. RADIATION DOSE PARAMETERS: CTDIvol Body: 13.30 mGy, DLP Body: 544 mGy*cm. CTDIvol Head: 46.80 mGy, DLP Head: 774 mGy*cm. COMPARISON: Noncontrast CT head performed concurrently. FINDINGS: CTA OF THE NECK: Arch: There is a three vessel aortic arch. The origins of the supra aortic vessels are patent. Right carotid system: The common carotid and cervical internal carotid arteries are patent. No stenosis (0%) by NASCET criteria. There is no dissection or aneurysm. Left carotid system: The common carotid and cervical internal carotid arteries are patent. No stenosis (0%) by NASCET criteria. There is no dissection or aneurysm. There is a co-dominant vertebral artery system. Right vertebral: No significant stenosis. No evidence of dissection or aneurysm. Left vertebral: No significant stenosis. No evidence of dissection or aneurysm. Other: Soft tissues and bones: No evidence of lymphadenopathy or mass. The thyroid is unremarkable. There is a nasal airway support device in place. There are curvilinear dependent airspace opacities in both lungs probably reflecting atelectasis. Multiple prominent but not pathologically enlarged mediastinal lymph nodes, largest 9 mm short axis. No acute osseous abnormality. Mild degenerative changes are noted at C5-C6 with loss of intervertebral disc height and small endplate osteophytes. CTA OF THE HEAD: Anterior circulation: Bilateral intracranial ICAs and their ELVIS and MCA branches are patent. There is no significant stenosis, proximal cutoff, aneurysm, or vascular malformation. Posterior circulation: Bilateral intracranial vertebral arteries, the basilar artery, and bilateralsuperior cerebellar and posterior cerebral branches are patent. There is no significant stenosis, proximal cutoff, aneurysm, or vascular malformation. Veins: Major dural venous sinuses are patent. Other: Soft tissues and bones: No midline shift or effacement of the basal cisterns. No space-occupying hemorrhage. No territorial loss of orantes-white matter differentiation. Orbits are unremarkable. There is mild scattered mucosal thickening in the paranasal sinuses without fluid levels. There is parietal scalp swelling, left greater than right. IMPRESSION: No proximal occlusion or high grade stenosis in the major arteries of the head and neck. A similar preliminary report was provided by [facility]. WSN: [id number] Ordering Physician: Grazyna Goodwin Dictated By: Ludivina Sharma MD Dictated Date/Time: 03/23/24 9:30 am Reviewed By: Ludivina Sharma MD Signed By: Ludivina Sharma MD Signed Date/Time: 03/23/24 9:30 am Transcribed By: BRIAN Transcribed Date/Time: 03/23/24 9:22 am * Exam Date Time Procedure Performing Provider Status 03/22/24 6:[address] Head-Hyper Acute Stroke Eulalio Bermeo; Thanh (Verified) Notes: (CT Head-Hyper Acute Stroke) Reason For Exam: Stroke;Other: RESULT: CT Head-Hyper Acute Stroke CT Head-Hyper Acute Stroke INDICATION: Reason: Other:; Stroke; Clinical Question(s): Other:; Hematoma Infarction TECHNIQUE: Noncontrast head CT using axial technique and reconstructed in axial and coronal planes.Iterative reconstruction techniques are used to optimize dose and image quality. CTDIvol Body: 26.40 mGy, DLP Body: 26 mGy*cm. CTDIvol Head: 46.80 mGy, DLP Head: 774 mGy*cm. COMPARISON: None. FINDINGS: Manager Multimedia view findings, lines and tubes: None. BRAIN AND EXTRA-AXIAL SPACES: No parenchymal hemorrhage, midline shift, or mass effect. Orantes-white matter differentiation is wellpreserved. No acute infarct. Ventricles, sulci, and basilar cisterns are normal. No white matter lesions. No subarachnoid hemorrhage. No subdural or epidural collection. CALVARIUM, SKULL BASE, AND SOFT TISSUES: No fractures or suspicious bony lesions. The paranasal sinuses and mastoid air cells are clear. Visualized orbits and globes are intact. The extracranial soft tissues are unremarkable. IMPRESSION: No acute intracranial pathology. WSN: [id number] Ordering Physician: Grazyna Goodwin Dictated By: Daniel Byrd MD Dictated Date/Time: 03/22/24 6:41 pm Reviewed By: Daniel Byrd MD Signed By: Daniel Byrd MD Signed Date/Time: 03/22/24 6:41 pm Transcribed By: BRIAN Transcribed Date/Time: 03/22/24 6:38 pm Vital Signs Most recent to oldest [Reference Range]: 1 2 3 4 Height 162.56 cm (03/24/24 8:09 AM) 162.56 cm (03/24/24 3:50 AM) 162.56 cm (03/23/24 11:59 PM) Weight 78.1 kg (03/22/24 11:46 AM) 78.1 kg (03/20/24 9:04 AM) Oxygen Saturation [94-100 %] 97 % (03/24/24 8:09 AM) 97 % (03/24/24 3:50 AM) 100 % (03/23/24 11:59 PM) Pulse Rate [55-90 bpm] 77 bpm (03/24/24 8:09 AM) 85 bpm (03/24/24 3:50 AM) 90 bpm (03/23/24 11:59 PM) Body Mass Index [18.5-24.99 kg/m2] 29.55 kg/m2 *H* (03/22/24 11:46 AM) 29.55 kg/m2 *H* (03/20/24 9:04 AM) Blood Pressure [90-138/55-84 mm Hg] 121/89mm Hg (03/24/24 8:09 AM) 126/89mm Hg (03/24/24 3:50 AM) 119/68mm Hg (03/23/24 11:59 PM) Respiratory Rate [16-30 br/min] 16 br/min (03/24/24 2:30 PM) 16 br/min (03/24/24 10:21 AM) 16 br/min (03/24/24 9:02 AM) 16 br/min (03/24/24 9:02 AM) Temperature [96.8-100.4 DegF] 97.8 DegF (03/24/24 8:09 AM) 98.2 DegF (03/24/24 3:50 AM) 98.9 DegF (03/23/24 11:59 PM) Liters per Minute 2 L/min (03/22/24 7:30 PM) 2 L/min (03/22/24 6:30 PM) 6 L/min (03/22/24 4:45 PM) Mode of Delivery (Oxygen) Room air (03/24/24 8:09 AM) Room air (03/24/24 3:50 AM) Room air (03/23/24 11:59 PM) Blood pressure sites Arm, right (03/24/24 8:09 AM) Arm, right (03/24/24 3:50 AM) Arm, right (03/23/24 11:59 PM) Temperature Route Oral (03/24/24 8:09 AM) Oral (03/24/24 3:50 AM) Oral (03/23/24 11:59 PM) Dry Weight 78.7 kg (03/22/24 11:46 AM) 78.1 kg (03/20/24 9:04 AM) Weight Obtained Via Patient/family stated (03/20/24 9:04 AM) Dry Weight Obtained Via Patient/family stated (03/20/24 9:04 AM) Social History Social History Type Response Smoking Status 10 or more cigarette s (1/2 pack or more)/day in last 30 days entered on: 03/15/19 Sex History and physical note * Event Display: History and Physical Hospital Authored Date: Cardiology * Event Display: Cardiac Rhythm Strips Authored Date: Hospital Progress note * Solange WHITE, Amy: PERFORM, SIGN, VERIFY Event Display: Progress Note Hospital Authored Date: [id number] Patient: ADAMA SUTHERLAND Age: 38 years Sex: Female : 1985 Associated Diagnoses: None Author: Amy Narvaez RN Findings Problem Related to Alteration in Genitourinary : Alteration in Genitourinary Function/new 03/24/2024 3:00 EDT 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 Goals & Outcomes, Genitourinary Pt will achieve normal/improved fluid balance, Pt will maintainadequate GI function appropriate for pt, Pt will maintain adequate function appropriate for pt, Pt will maintain normal fluid balance, Pt will resume normal pattern of elimination, Pt/caregiver will state understanding of self-care skills, Pt will report acceptable level of comfort/pain, Pt willnot experience S/S of infection prior to D/C, Pt will remain free from complications r/t immobility, Pt will verbalize nutritional plan post surgery, Pt will verbalize psychosocial implications of surgery, Pt will verbalize when to follow up/call MD after D/C Interventions, Assess/monitor/maintain Genitourinary status, Assist & encourage pt with meticulous renate care, Encourage PO fluid intake as allowed by diet, Assess for vaginal bleeding, institute pericare, Assess peripad for drainage, consistency, amount, Assess for s/s of infection, Encourage pt to avoid gas producing foods & drink, Monitor effects of meds that improve motility, Teach Pt/caregiver activity instructions, Teach Pt/caregiver pain management strategies, Teach Pt/caregiver re: wound care/wound clips/sutures Goals/Interventions, Genitourinary Yes Genitourinary, Problem Start 03/23/2024 4:24 Reviewed Plan with, Genitourinary Patient Patient Progression, Genitourinary Patient progressing according to plan Genitourinary, Problem Ongoing Yes . Evaluation Pt. A/Ox3, VSS, afebrile. Refusing tele., off tele. since approx. 2029, notified. Reports abdominal pain that's being managed with scheduled and PRN medications. Denies CP, SOB, N/V/D. Denies weakness, numbness and tingling. Abdomen with 5 small surgical incisions, no drainage. Voiding without di fficulty. Please see CIS for biophysical/flowsheet. Safety precautions in place, call ashton within reach, plan of care ongoing. . * Kee CROCKER, Perlita Collins: PERFORM, MODIFY, MODIFY Event Display: Progress Note Hospital Authored Date: Patient: ??ADAMA SUTHERLAND ? Age:??38 Years?Sex:??Female?:??1985?? History of Present Illness Interval history: - LUE weakness/hand in home nanny strength resolved - MRI Brain - negative - Patient appears mildly uncomfortable this morning and drowsy (had just received ibuprofen, APAP, and oxycodone) Review of Systems Admits to lower abdominal??surgical site discomfort. Denies L sided weakness, numbness, paresthesias, vision changes, speech changes. Objective Measurements?? Height: 162.56 cm (03/23/24) Weight: 78.1 kg (03/22/24) Dry Weight: 78.7 kg (03/22/24) Body Mass Index:??29.55 kg/m2??High (03/22/24) ? Vital Signs?? Temperature: 97.5 DegF (03/23/24 03:19:00) Temperature Route: Oral (03/23/24 03:19:00) Normothermic Measures: Warming blanket (03/22/24 16:15:00) Pulse Rate:??106 bpm??High (03/23/24 03:19:00) Heart Rate Monitored: 82 bpm (03/22/24 19:30:00) Respiratory Rate: 18 br/min (03/23/24 05:51:00) Systolic Blood Pressure: 123 mm Hg (03/23/24 03:19:00) Diastolic Blood Pressure: 62 mm Hg (03/23/24 03:19:00) Blood pressure sites: Arm, right (03/23/24 03:19:00) Mean Arterial Pressure: 82 mm Hg (03/23/24 03:19:00) Pulse Pressure: 61 mm Hg (03/23/24 03:19:00) Oxygen Saturation:??93 %??Low (03/23/24 03:19:00) Liters per Minute: 2 L/min (03/22/24 19:30:00) Mode of Delivery (Oxygen): Room air (03/23/24 03:19:00) Early Warning Score: 5 (03/23/24 05:53:26) ? Intake/Output? 03/22 10:52 05/ 07:00 05 07:00 05 07:00 05 07:00 ?? 03/23 07:32 05 07:32 05 06:59 05/03 06:59 05/02 06:59 Intake ? 1375 ?0 ? 1375 ?0 ?0 Output ?200 ?0 ?200 ?0 ?0 Net Total ? 1175 ?0 ? 1175 ?0 ?0 ? Urine Count ?2 ?0 ?2 ?0 ?0 ? NIH Stroke Scale Level of Consciousness for Stroke Scale: Not alert: arousable by minor stimulation (03/22/24 18:00:00) Response Month/Age: Answers both questions correctly (03/22/24 18:00:00) Response Open/Close Eyes: Performs both tasks correctly (03/22/24 18:00:00) Best Gaze: Normal (03/22/24 18:00:00) Visual: No visual loss (03/22/24 18:00:00) Facial Palsy: Normal symmetrical movements (03/22/24 18:00:00) Motor Function Left Arm: No drift (03/22/24 18:00:00) Motor Function Right Arm: No drift (03/22/24 18:00:00) Motor Function Left Leg: Drift (03/22/24 18:00:00) Motor Function Right Leg: Drift (03/22/24 18:00:00) Limb Ataxia: Absent (03/22/24 18:00:00) Sensory: Normal; no sensory loss (03/22/24 18:00:00) Best Language: No aphasia (03/22/24 18:00:00) Dysarthria NIH Stroke Scale: Normal (03/22/24 18:00:00) Extinction and Inattention: No abnormality (03/22/24 18:00:00) NIH Stroke Scale Score: 3 (03/22/24 18:00:00) ? Physical Exam Gen: drowsy, appears mildly uncomfortable holding her lower abdomen HEENT: normocephalic, atraumatic. No ptosis. Nares patent. Mouth normal. Psych: not anxious or agitated Cardio: RRR Lungs: normal I:E Extremities: no edema Skin: warm and dry Neuro: Mental status is??intact, no deficits Speech is fluent w/o dysarthria and aphasia. Names well. Follows simple commands. Cranial Nerves: PERRL, EOMI without nystagmus, BTT bl. No facial droop. Facial sensation intact. Tongue midline. Shoulder shrug symmetric b/l. Motor:??BUE 5/5, no pronator drift. BLE 4/5 d/t abdominal pain, no drift. Sensation: Intact light touch sensation bilaterally. No neglect on DSS. Coordination: No ataxia or dysmetria noted with finger to nose.?? Reflexes: Plantar reflexes: Flexor ?? MRI Brain IMPRESSION: Within confines of motion: No significant intracranial abnormality. ?? Images have been personally reviewed by myself. ?? Assessment/Plan 38 y/o F with PMH of severe dysmenorrhea, fibroid uterus, and history of opiate abuse (recently s/prehab and clean) who presented for a robotic TIFFANIE w/ b/l??salpingo-oophorectomy on 5/3. No complications. In the PANU, patient was noted to have L sided weakness (drift, in home nanny strength) and L sensory changes (feeling weird ) so an acute stroke was activated. Patient improved upon neurology exam, with NIHSS 3 which is falsely elevated (pain related and med effect scored points). Patient currently denies any sensory changes but mild LUE persists. BP normotensive, POC normal.??CTH nonacute. CTA w/oLVO or high grade stenosis. Received ASA 162 mg.??MRI Brain negative. ?? A/P: episode of L sided weakness, sensory changes post-operatively??with no stroke on imgaging. probably??med effect, no neurologic etiology at this time.? D/w Dr. Galeana Call/cortex with any questions. Neurology will sign off. Histories Allergies Allergies ?(Active and Proposed Allergies Only) TraMADol Hydrochloride? (Severity: Unknown severity, Onset: Unknown) ?Reactions: gi upset ?Comments: stomach pain, brain fog Suboxone? (Severity: Unknown severity, Onset: Unknown) ?Reactions: blacked out naltrexone? (Severity: Unknown severity, Onset: Unknown) ?Reactions: panic attack/aniexty predniSONE? (Severity: Unknown severity, Onset: Unknown) ?Reactions: Hallucinogen dependence, episodic amoxicillin? (Severity: Moderate, Onset: 05/17/2006) ?Reactions: change in behavior/mental status, blacked out ? Past Medical History/Problem List Active Problems(3) Bartholin's cyst Chronic pelvic pain syndrome Fibroid uterus ? Past Surgical History Cholecystectomy: 09/2015 Operation on Bartholin gland Laminotomy (hemilaminectomy), with decompression of nerve root(s), including partial facetectomy, foraminotomy and/or excision of herniated intervertebral disc; 1 interspace, lumbar ? Social History Alcohol Details:??Use: Past. ??Frequency: 3-5 times per week. Substance Abuse Details:??Use: Current. ??Type: Marijuana. Tobacco Details:??Use: 10 or more cigarettes (1/2 pack or more)/day in last 30 days. ? Family History Mother: Breast cancer; Cancer of ovary; Fibroids; Premature menopause ? Stroke Treatment Details Able to close lips, pucker and blow out: Yes Able to swallow own secretions: Yes Absence of dysarthria/dysphonia/aphonia: Yes No delay in swallowing (tsp): Yes Patient alert: Yes Swallows water without choking (60cc): Yes Swallows water without choking (tsp): Yes Voice sounds clear, not gurgly (60cc): Yes Voice sounds clear, not gurgly (tsp): Yes Voluntary Cough: Yes ?? Medications Home Medications Albuterol (Albuterol (Eqv-ProAir HFA) 90 mcg/inh inhalation aerosol)?2?puff(s)?Inhalation?as needed?Wheezing/Shortness of Breath Albuterol (albuterol 2.5 mg/0.5 mL (0.5%) inhalation solution)?0.5?Milliliter?2.5?Milligram?Neb?4 times a day?as needed?as needed for wheezing DimenhyDRINATE (Dramamine 50 mg oral tablet)?1?tab(s)?50?Milligram?By Mouth?Every6 hours?as needed?for motion sickness Gabapentin (gabapentin 600 mg oral tablet)?1?tab(s)?600?Milligram?By Mouth?Daily ? Inpatient Medications Medications (16) Active SCHEDULED: (9) Acetaminophen 325 mg Tablet (Acetaminophen Tablet) ??975 mg, By Mouth, Every 6 hours Aspirin 81 mg EC Tablet (aspirin 81 mg oral delayed release tablet) ??162 mg, By Mouth, Once Aspirin 81 mg EC Tablet (aspirin 81 mg oral delayed release tablet) ??81 mg, By Mouth, Daily CeFAZolin 2 Gm Inj (ceFAZolin Inj) ??2 Gm, IV Push, Once Docusate Sodium 100 mg Capsule (Colace Capsule) ??100 mg 1 capsule, By Mouth, 2 times a day Gabapentin 400 mg Capsule (gabapentin 400 mg oral capsule) ??400 mg, By Mouth, 2 times a day Ibuprofen 600 mg Tablet (Ibuprofen Tablet) ??600 mg, By Mouth, Every 6 hours Metronidazole 500 mg / NaCL 0.9% 100 mL (Flagyl IVPB) ??500 mg 100 mL, IVPB, Once Polyethylene Glycol 17 Gm Powder (MiraLax Powder) ??17 Gm 1 pack/packet, By Mouth, Daily CONTINUOUS: (2) D5%LR (500 mL) Cont IV 500 mL (Bolus D5%/LR 500mL (PACU ONLY) 500 mL) ??500 mL, IV Infusion Lactated Ringers (1000 mL) Cont IV 1,000 mL (LR 1,000 mL) ??1,000 mL, IV Infusion, 125 mL/hr PRN: (5) Acetaminophen 1000 mg IVPB (Acetaminophen IVPB) ??1,000 mg 100 mL, IVPB, Once Albuterol 90mcg/Inhalation Inhaler HFA (albuterol CFC free 90 mcg/inh inhalation aerosol) ??180 mcg2 puffs, Inhalation, Every 4 hours Metoclopramide 5 mg/mL Inj (2 mL) (Reglan Inj) ??10 mg, IV Push Slowly, Every 6 hours OxyCODONE 5 mg IR Tablet (OxyCODONE IR Tablet) ??5 mg, By Mouth, Every 4 hours Simethicone 80 mg Chewable Tablet (Simethicone Tablet) ??80 mg, Chew, 5 times a day ? Results Recent Labs BLOOD BANK Blood Type O Positive ()?? 03/22/2024 02:10 Antibody Screen Negative ()?? 03/22/2024 02:10 ?? BLOOD COUNT & DIFF WBC 9.3 x10E3/uL (Normal)?? 03/21/2024 16:34 RBC 4.39 (Normal)?? 03/21/2024 16:34 Hgb 11.9 g/dL (Normal)?? 03/21/2024 16:34 Hct 37.9 % (Normal)?? 03/21/2024 16:34 MCV 86 fL (Normal)?? 03/21/2024 16:34 MCH 27.1 pg (Normal)?? 03/21/2024 16:34 MCHC 31.4 g/dL (Low)?? 03/21/2024 16:34 Platelet Count 260 x10E3/uL (Normal)?? 03/21/2024 16:34 MPV 14.5 % (Normal)?? 03/21/2024 16:34 Abs. Neut 4.5 x10E3/uL (Normal)?? 03/21/2024 16:34 Abs. Lymph 1.9 x10E3/uL (Normal)?? 03/21/2024 16:34 Abs. Andrew 0.5 x10E3/uL (Normal)?? 03/21/2024 16:34 Abs. Eo 2.5 x10E3/uL (High)?? 03/21/2024 16:34 Abs. Baso 0.0 x10E3/uL (Normal)?? 03/21/2024 16:34 Neut % 48 % (Normal)?? 03/21/2024 16:34 Lymph % 20 % (Normal)?? 03/21/2024 16:34 Andrew % 5 % (Normal)?? 03/21/2024 16:34 Eos % 27 % (Normal)?? 03/21/2024 16:34 Baso % 0 % (Normal)?? 03/21/2024 16:34 Platelet Comment Note: (Normal)?? 03/21/2024 16:34 Imm Gran 0 % (Normal)?? 03/21/2024 16:34 Abs. Imm Gran 0.0 x10E3/uL (Normal)?? 03/21/2024 16:34 ?? CHEM GENERAL Glucose, POC 105 mg/dL (High)?? 03/22/2024 17:45 Creatinine-Blood 0.66 mg/dL (Normal)?? 03/21/2024 16:34 Estimated GFR Creatinine 116 ML/MIN/1.73 M2 (Normal)?? 03/21/2024 16:34 ? Abnormal Labs ?? CHEM GENERAL Glucose, POC?105 mg/dL (High)?03/22/2024 17:45 ?? Note: Critical results are displayed in red. ? Blood Glucose Trend Glucose, POC:??105 mg/dL??High (03/22/24 17:45:00) ? CBC, CBC w/Diff?? No qualifying data available. ?? BMP, Mg, and Phos?? No qualifying data available. ?? Coagulation Profile?? No qualifying data available. ?? LFT?? No qualifying data available. ?? Urinalysis?? No qualifying data available. ? Blood Gases?? No qualifying data available. ?? Uric/LDH?? No qualifying data available. ? * Lissett CHEUNG, Dmitriy: PERFORM Event Display: Progress Note Hospital Authored Date: Patient seen and examined with LIZZETTE Sweet. I reviewed her note and agree with her assessment and plan. ?? Dmitriy Galeana MD, PhD ?? 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 Goals & Outcomes, Genitourinary Pt will achieve normal/improved fluid balance, Pt will maintainadequate GI function appropriate for pt, Pt will maintain adequate function appropriate for pt, Pt will maintain normal fluid balance, Pt will resume normal pattern of elimination, Pt/caregiver will state understanding of self-care skills, Pt will report acceptable level of comfort/pain, Pt willnot experience S/S of infection prior to D/C, Pt will remain free from complications r/t immobility, Pt will verbalize nutritional plan post surgery, Pt will verbalize psychosocial implications of surgery, Pt will verbalize when to follow up/call MD after D/C Interventions, Assess/monitor/maintain Genitourinary status, Assist & encourage pt with meticulous renate care, Encourage PO fluid intake as allowed by diet, Assess for s/s of infection, Encourage pt to avoid gas producing foods & drink, Monitor effects of meds that improve motility, TeachPt/caregiver re: wound care/wound clips/sutures BH Goals/Interventions, Genitourinary Yes Genitourinary, Problem Start 03/23/2024 4:24 Reviewed Plan with, Genitourinary Patient Patient Progression, Genitourinary Plan Initiation Genitourinary, Problem Ongoing Yes . Evaluation Pt. admitted to the unit from PACU. Arrived in a hospital bed accompanied by transport staff, oriented pt. to room in 32B and call ashton system. A/Ox3, VSS, afebrile, on tele. sinus tachycardia with HR up to 120s at times. Reports 4/10 abdominal pain that's being managed with scheduled and PRN pain medications. Denies CP, SOB, N/V, no edema noted. Denies numbness, weakness, and tingling to extremities. Abdomen soft/tender, denies flatus, +BS all 4 quads, 5 lap sites with surgical glue, no drainage noted. Voiding using bedside commode. Please see CIS for biophysical/flowsheet. Safety and falls protocols in place, call ashton within reach, plan of care ongoing.. Consult note * Kee CROCKER, Perlita Collins: MODIFY, MODIFY, MODIFY, PERFORM Event Display: Consultation Note Authored Date: Patient: ??ADAMA SUTHERLAND ? Age:??38 Years?Sex:??Female?:??1985?? History of Present Illness 38 y/o F with PMH of severe dysmenorrhea, fibroid uterus, and history of opiate abuse (recently s/prehab and clean) who presented for a robotic TIFFANIE w/ b/l??salpingo-oophorectomy on 03/22. No complications. In the PANU, patient was noted to have L sided weakness (drift, in home nanny strength) and L sensory changes (feeling weird ) so an acute stroke was activated. Patient improved upon neurology exam, with NIHSS 3 which is falsely elevated (pain related and med effect scored points). Patient currently denies any sensory changes but mild LUE persists. BP normotensive, POC normal. Patient endorses surgical site pain and discomfort, had just received Dilaudid prior to this writers arrival. ? Stroke Time Course: Time patient last seen well (not time patient was found):??pre-op ~ 1145 Time neurology consulted/paged:??174 Time patient is seen by neurology:??[address] head/interpreted:??180 tPA Given:?? No tPA time if given: N/A Reason for tPA exclusion if not given:??recent surgery, OOW ?? Review of Systems As stated in HPI. Admits to lower abdominal/post-op pain,??wanting to have ice and eat pomegranate.Denies numbness, paresthesias, headache, dizziness. Objective Measurements?? Height: 162.56 cm (03/22/24) Weight: 78.1 kg (03/22/24) Dry Weight: 78.7 kg (03/22/24) Body Mass Index:??29.55 kg/m2??High (03/22/24) ? Vital Signs?? Temperature: 98.2 DegF (03/22/24 16:15:00) Temperature Route: Temporal (03/22/24 16:15:00) Normothermic Measures: Warming blanket (03/22/24 16:15:00) Pulse Rate:??94 bpm??High (03/22/24 11:46:00) Heart Rate Monitored: 61 bpm (03/22/24 17:45:00) Heart Rate Monitored: 61 bpm (03/22/24 17:45:00) Respiratory Rate: 20 br/min (03/22/24 17:45:00) Respiratory Rate: 20 br/min (03/22/24 17:45:00) Systolic Blood Pressure: 124 mm Hg (03/22/24 17:45:00) Systolic Blood Pressure: 124 mm Hg (03/22/24 17:45:00) Diastolic Blood Pressure: 83 mm Hg (03/22/24 17:45:00) Diastolic Blood Pressure: 83 mm Hg (03/22/24 17:45:00) Blood pressure sites: Arm, left (03/22/24 16:15:00) Mean Arterial Pressure: 104 mm Hg (03/22/24 11:46:00) Pulse Pressure: 41 mm Hg (03/22/24 17:45:00) Oxygen Saturation: 99 % (03/22/24 17:45:00) Oxygen Saturation:??81 %??Low (03/22/24 17:45:00) Liters per Minute: 6 L/min (03/22/24 16:45:00) Mode of Delivery (Oxygen): Shovel mask (03/22/24 16:45:00) ? NIH Stroke Scale Level of Consciousness for Stroke Scale: Not alert: arousable by minor stimulation (03/22/24 18:00:00) Response Month/Age: Answers both questions correctly (03/22/24 18:00:00) Response Open/Close Eyes: Performs both tasks correctly (03/22/24 18:00:00) Best Gaze: Normal (03/22/24 18:00:00) Visual: No visual loss (03/22/24 18:00:00) Facial Palsy: Normal symmetrical movements (03/22/24 18:00:00) Motor Function Left Arm: No drift (03/22/24 18:00:00) Motor Function Right Arm: No drift (03/22/24 18:00:00) Motor Function Left Leg: Drift (03/22/24 18:00:00) Motor Function Right Leg: Drift (03/22/24 18:00:00) Limb Ataxia: Absent (03/22/24 18:00:00) Sensory: Normal; no sensory loss (03/22/24 18:00:00) Best Language: No aphasia (03/22/24 18:00:00) Dysarthria NIH Stroke Scale: Normal (03/22/24 18:00:00) Extinction and Inattention: No abnormality (03/22/24 18:00:00) NIH Stroke Scale Score: 3 (03/22/24 18:00:00) ? Physical Exam Gen: GCS 14 (E3V5M6) - drowsy from med effect HEENT: normocephalic, atraumatic. No ptosis. Nares patent. Mouth normal. Psych: tearful, not anxious Cardio: RRR Lungs: normal I:E Abdomen: nondistended Extremities: no edema Skin: warm and dry Neuro: Mental status is??intact, no deficits Speech is fluent w/o dysarthria and aphasia. Names well. Follows simple commands. Cranial Nerves: PERRL, EOMI without nystagmus, BTT bl. No facial droop. Facial sensation intact. Tongue midline. Shoulder shrug symmetric b/l. Motor:??RUE 5/5, LUE 5-/5 with in home nanny 4/5.??No pronator drift. BLE 4/5 with drift d/t abdominal pain. Sensation: Intact light touch sensation bilaterally. No neglect on DSS. Coordination: No ataxia or dysmetria noted with finger to nose.?? Reflexes: Plantar reflexes: Flexor ? Assessment/Plan 38 y/o F with PMH of severe dysmenorrhea, fibroid uterus, and history of opiate abuse (recently s/prehab and clean) who presented for a robotic TIFFANIE w/ b/l??salpingo-oophorectomy on 03/22. No complications. In the PANU, patient was noted to have L sided weakness (drift, in home nanny strength) and L sensory changes (feeling weird ) so an acute stroke was activated. Patient improved upon neurology exam, with NIHSS 3 which is falsely elevated (pain related and med effect scored points). Patient currently denies any sensory changes but mild LUE persists. BP normotensive, POC normal. CTH nonacute. CTA w/o LVO or high grade stenosis. ?? Dx: episode of L sided weakness, sensory changes post-operatively - r/o R hemispheric stroke ?? Recommendations: - q 4 hour neuro checks - MRI of brain w/o??to assess for infarct - rec ASA load (rectally if unable to swallow right now with mentation) followed by ASA 81mg daily - check LDL. recommend goal LDL <70 with high dose statin - check A1C - PT consult may be required but can determine once patient's mentation is baseline - cardiac telemetry - NPO until passes swallow eval - DVT ppx with SQH - permissive hypertension - provide stroke education - outpatient goals LDL between 40 &70, A1C <7%, and BP <120/80? D/w Dr. Galeana D/w MERCH[facility] HANDLER Call/cortex with any questions. Neurology will follow. ?? Histories Allergies Allergies ?(Active and Proposed Allergies Only) TraMADol Hydrochloride? (Severity: Unknown severity, Onset: Unknown) ?Reactions: gi upset ?Comments: stomach pain, brain fog Suboxone? (Severity: Unknown severity, Onset: Unknown) ?Reactions: blacked out naltrexone? (Severity: Unknown severity, Onset: Unknown) ?Reactions: panic attack/aniexty predniSONE? (Severity: Unknown severity, Onset: Unknown) ?Reactions: Hallucinogen dependence, episodic amoxicillin? (Severity: Moderate, Onset: 05/17/2006) ?Reactions: change in behavior/mental status, blacked out ? Past Medical History/Problem List Active Problems(3) Bartholin's cyst Chronic pelvic pain syndrome Fibroid uterus ? Past Surgical History Cholecystectomy: 09/2015 Operation on Bartholin gland Laminotomy (hemilaminectomy), with decompression of nerve root(s), including partial facetectomy, foraminotomy and/or excision of herniated intervertebral disc; 1 interspace, lumbar ? Social History Alcohol Details:??Use: Past. ??Frequency: 3-5 times per week. Substance Abuse Details:??Use: Current. ??Type: Marijuana. Tobacco Details:??Use: 10 or more cigarettes (1/2 pack or more)/day in last 30 days. ? Family History Mother: Breast cancer; Cancer of ovary; Fibroids; Premature menopause ? Medications Home Medications Albuterol (Albuterol (Eqv-ProAir HFA) 90 mcg/inh inhalation aerosol)?2?puff(s)?Inhalation?as needed?Wheezing/Shortness of Breath Albuterol (albuterol 2.5 mg/0.5 mL (0.5%) inhalation solution)?0.5?Milliliter?2.5?Milligram?Neb?4 times a day?as needed?as needed for wheezing DimenhyDRINATE (Dramamine 50 mg oral tablet)?1?tab(s)?50?Milligram?By Mouth?Every6 hours?as needed?for motion sickness Gabapentin (gabapentin 600 mg oral tablet)?1?tab(s)?600?Milligram?By Mouth?Daily ? Inpatient Medications Medications (22) Active SCHEDULED: (7) Acetaminophen 325 mg Tablet (Acetaminophen Tablet) ??975 mg, By Mouth, Every 6 hours CeFAZolin 2 Gm Inj (ceFAZolin Inj) ??2 Gm, IV Push, Once Docusate Sodium 100 mg Capsule (Colace Capsule) ??100 mg 1 capsule, By Mouth, 2 times a day Gabapentin 400 mg Capsule (gabapentin 400 mg oral capsule) ??400 mg, By Mouth, 2 times a day Ibuprofen 600 mg Tablet (Ibuprofen Tablet) ??600 mg, By Mouth, Every 6 hours Metronidazole 500 mg / NaCL 0.9% 100 mL (Flagyl IVPB) ??500 mg 100 mL, IVPB, Once Polyethylene Glycol 17 Gm Powder (MiraLax Powder) ??17 Gm 1 pack/packet, By Mouth, Daily CONTINUOUS: (2) D5%LR (500 mL) Cont IV 500 mL (Bolus D5%/LR 500mL (PACU ONLY) 500 mL) ??500 mL, IV Infusion Lactated Ringers (1000 mL) Cont IV 1,000 mL (LR 1,000 mL) ??1,000 mL, IV Infusion, 125 mL/hr PRN: (13) Acetaminophen 1000 mg IVPB (Acetaminophen IVPB) ??1,000 mg 100 mL, IVPB, Once Albuterol 90mcg/Inhalation Inhaler HFA (albuterol CFC free 90 mcg/inh inhalation aerosol) ??180 mcg2 puffs, Inhalation, Every 4 hours Chloraseptic Lozenge (Chloraseptic Lozenge *) ??1 lozenge, By Mouth, Every 2 hours diphenhydrAMINE 50 mg/mL Inj (DiphenhydrAMINE Inj (PACU ONLY)) ??12.5 mg 0.25 mL, IV Push, Once FENTanyl 50 mcg/mL Inj (2 mL) (Fentanyl Inj (PACU ONLY)) ??25 mcg 0.5 mL, IV Push Slowly, Every 5 minutes Haloperidol Lactate 5 mg/mL Inj (1 mL) (Haloperidol LACTATE Inj (PACU ONLY)) ??1 mg 0.2 mL, IV Push, Once HYDROmorphone 0.5 mg/0.5 mL Inj Syringe (HYDROmorphone Inj (PACU ONLY)) ??0.5 mg 0.5 mL, IV Push Slowly, Every 5 minutes Lorazepam 2 mg Inj Syringe (LORazepam Inj (PACU ONLY)) ??0.5 mg, IV Push Slowly, Once Metoclopramide 5 mg/mL Inj (2 mL) (Reglan Inj) ??10 mg, IV Push Slowly, Every 6 hours nalOXONE ??400mcg/mL Inj (nalOXONE Inj) ??0.04 mg 0.1 mL, IV Push, Every 5 minutes OxyCODONE 5 mg IR Tablet (Oxycodone 5mg Oral Tablet (PACU ONLY)) ??5 mg, By Mouth, Once OxyCODONE 5 mg IR Tablet (OxyCODONE IR Tablet) ??5 mg, By Mouth, Every 4 hours Simethicone 80 mg Chewable Tablet (Simethicone Tablet) ??80 mg, Chew, 5 times a day ? Results Recent Labs BLOOD BANK Blood Type O Positive ()?? 03/22/2024 02:10 Antibody Screen Negative ()?? 03/22/2024 02:10 ?? BLOOD COUNT & DIFF WBC 9.3 x10E3/uL (Normal)?? 03/21/2024 16:34 RBC 4.39 (Normal)?? 03/21/2024 16:34 Hgb 11.9 g/dL (Normal)?? 03/21/2024 16:34 Hct 37.9 % (Normal)?? 03/21/2024 16:34 MCV 86 fL (Normal)?? 03/21/2024 16:34 MCH 27.1 pg (Normal)?? 03/21/2024 16:34 MCHC 31.4 g/dL (Low)?? 03/21/2024 16:34 Platelet Count 260 x10E3/uL (Normal)?? 03/21/2024 16:34 MPV 14.5 % (Normal)?? 03/21/2024 16:34 Abs. Neut 4.5 x10E3/uL (Normal)?? 03/21/2024 16:34 Abs. Lymph 1.9 x10E3/uL (Normal)?? 03/21/2024 16:34 Abs. Andrew 0.5 x10E3/uL (Normal)?? 03/21/2024 16:34 Abs. Eo 2.5 x10E3/uL (High)?? 03/21/2024 16:34 Abs. Baso 0.0 x10E3/uL (Normal)?? 03/21/2024 16:34 Neut % 48 % (Normal)?? 03/21/2024 16:34 Lymph % 20 % (Normal)?? 03/21/2024 16:34 Andrew % 5 % (Normal)?? 03/21/2024 16:34 Eos % 27 % (Normal)?? 03/21/2024 16:34 Baso % 0 % (Normal)?? 03/21/2024 16:34 Platelet Comment Note: (Normal)?? 03/21/2024 16:34 Imm Gran 0 % (Normal)?? 03/21/2024 16:34 Abs. Imm Gran 0.0 x10E3/uL (Normal)?? 03/21/2024 16:34 ?? CHEM GENERAL Glucose, POC 105 mg/dL (High)?? 03/22/2024 17:45 Creatinine-Blood 0.66 mg/dL (Normal)?? 03/21/2024 16:34 Estimated GFR Creatinine 116 ML/MIN/1.73 M2 (Normal)?? 03/21/2024 16:34 ? Abnormal Labs ?? CHEM GENERAL Glucose, POC?105 mg/dL (High)?03/22/2024 17:45 ?? Note: Critical results are displayed in red. ? Blood Glucose Trend Glucose, POC:??105 mg/dL??High (03/22/24 17:45:00) ? CBC, CBC w/Diff?? No qualifying data available. ?? BMP, Mg, and Phos?? No qualifying data available. ?? Coagulation Profile?? No qualifying data available. ?? LFT?? No qualifying data available. ?? Urinalysis?? No qualifying data available. ? Blood Gases?? No qualifying data available. ?? Uric/LDH?? No qualifying data available. ? * Lissett CHEUNG, Dmitriy: PERFORM Event Display: Consultation Note Authored Date: [id number] NEUROLOGY ATTENDING ATTESTATION NOTE: Patient seen and examined with LIZZETTE Sweet. I reviewed her note and agree with her assessment and plan. In brief, this is a??38yo RH??F with PMH of severe dysmenorrhea, fibroid uterus, and history of opiate abuse (recently s/p rehab and clean) who presented for a robotic TIFFANIE w/ b/l??salpingo-oophorectomy on today. No complications. In the PANU, patient was noted to have mild L sided weakness (drift, in home nanny strength) and L sensory changes (feeling weird ) with still some lingering anesthesia effects.??An acute stroke was activated. Patient improved upon neurology exam, with NIHSS 3 which is falsely elevated (pain related and med effect scored points), but might have some hard finding with decreased in home nanny strength on the left, no facial asymmetry. Legs are difficult to assess due to the abnormal surgery. Patient currently denies any sensory changes but mild LUE persists. BP normotensive, POC normal. CTH nonacute. CTA w/o LVO or high grade stenosis. ?? Recommendations: - q 4 hour neuro checks - MRI of brain w/o??to assess for infarct - recommend ASA load (rectally (300mg)??if unable to swallow right now with mentation) followed by ASA 81mg daily - check LDL. recommend goal LDL <70 with high dose statin - check A1C - PT consult may be required but can determine once patient's mentation is baseline - cardiac telemetry - NPO until passes swallow eval - DVT ppx with SQH - permissive hypertension - provide stroke education - outpatient goals LDL between 40 &70, A1C <7%, and BP <120/80? Dmitriy Galeana MD, PhD (I spent a total of 55 minutes with this critically ill patient) Note * Kami Gordillo RN: PERFORM Event Display: Discharge/Transfer Note Hospital Authored Date: [id number] Nursing Discharge Note Entered On: 03/24/2024 16:01 EDT Performed On: 03/24/2024 16:00 EDT by Kami Gordillo RN Nursing Discharge Note 2 Discharge Time : 03/24/2024 16:00 EDT Discharge Level of Care at Discharge : Home/Retirement/Foster Care Patient Left Unit Via : Wheelchair Patient Accompanied Off Unit with : Other: transport DC Instructions Provided & Signed by Pt : Yes Patient Understands D/C Instructions : Yes Verbalized Understanding of D/C Plan By : Patient, Significant other Patient Instructions Discharge Signed : Yes Did Pt have Specialty Bed or Wound Vac : No Kami Gordillo RN - 03/24/2024 16:00 EDT * Bella Thornton DO: PERFORM Event Display: Discharge/Transfer Note Hospital Authored Date: [id number] Patient: ??ADAMA SUTHERLAND ? Age:??38 Years?Sex:??Female?:??1985?? Admit Date Admission Date: 03/22/2024 Discharge Date 03/24/2024 [facility] Course Adama is a 38 year old admitted for a robotic-assisted total laparoscopic hysterectomy, bilateralsalpingectomy, cystoscopy in the setting of uterine fibroids. Procedure was??uncomplicated. EBL 100cc. Post-operative course complicated by left hemiparesis in PACU. Acute Stroke was called and [facility] HANDLER pr esented to bedside for evaluation. CT head was obtained without evidence of any acute??abnormality.Per Neurology recommendations, a loading dose of Aspirin was provided with the plan to continue Aspirin 81mg daily. Adama remained on telemetry overnight. Left arm sensory and motor deficits had completely resolved in the morning. Formal??read of??MRI brain w/o contrast??with no acute intracranial abnormality. She is meeting post-operative milestones. Appropriate for discharge on POD2. Objective/Physical Exam on Day of Discharge Vitals & Measurements T:??97.8?F?? HR:??77??(Peripheral)?? RR:??16?? BP:??121/89?? SpO2:??97%?? HT:??162.56??cm?? WT:??78.1??kg?? BMI:??29.55?? Constitutional: No acute distress, resting comfortably.?? Respiratory: Normal work of breathing.?? Abdomen/GI: Soft, non-distended, no guarding or??rebound tenderness. Appropriately tender.??x5 portincisions??appear??clean, dry and intact. Gynecologic: No blood on pad.?? Extremities: Equal strength/sensation??of left and right upper extremity.?? Neurological/Psychiatric: Mood and affect congruent and stable. Assessment/Plan Assessment:??Adama is a 38 year old POD1 from a robotic-assisted total laparoscopic hysterectomy,bilateral salpingectomy, cystoscopy in the setting of uterine fibroids. Post-operative course complicated by left hemiparesis requiring a Code Stroke to be called. CT brain obtained without evidence of intracranial pathology. Motor and sensory symptoms have since resolved. MRI brain w/o contrast obtained and negative for acute intracranial abnormality. Adama is otherwise meeting post-operative milestones. Pain is overall well controlled. Tolerating PO intake without difficulty. She is voiding spontaneously. Appropriate for discharge home on POD2. Rx sent to pharmacy. Follow up in clinic forpost op visit. ? Plan discussed with Dr. Jones, attending physician. ?? Future Appointments Monday. 2023 10:40 AM EDT ?? With: Joanne CHEUNG, Chelsie Where: [facility] [address] [facility] 4th [place] [address]- Status: Pending Procedures Performed This Visit Robotic XI Hysterectomy Salpingo-Oophore Cystoscopy Discharge Medications ???Acetaminophen (acetaminophen 325 mg oral tablet)???Albuterol (Albuterol (Eqv- ProAir HFA) 90 mcg/inh inhalation aerosol)???Albuterol (albuterol 2.5 mg/0.5 mL (0.5%) inhalation solution)???DimenhyDRINATE (Dramamine 50 mg oral tablet)???Docusate (docusate sodium 100 mg oral capsule)???Gabapentin (ga bapentin 600 mg oral tablet)???Ibuprofen (ibuprofen 600 mg oral tablet)???Oxycodone (oxyCODONE 5 mgoral tablet)???Polyethylene Glycol 3350 (MiraLax oral powder for reconstitution) Patient Instructions Please call your doctor if you note any of the following symptoms: - fever of 100.4 or greater - heavy vaginal bleeding - foul-smelling vaginal discharge - difficulty or burning with urination - nausea and vomiting with inability to tolerate food - pain not controlled by your prescribed medications - redness/swelling/drainage at incision(s) - shortness of breath or chest pain ?? In addition, please follow these steps to help your healing process: ?? - Do not drive while taking narcotics. Do not drive until cleared by your doctor. - Avoid lifting anything 15lbs or greater for 2 weeks or until cleared by your doctor. - Do not put anything in the vagina. No intercourse, tampons, or douching??for 8 weeks. - Stairs are OK but avoid multiple trips and go slowly. - Walk as often as you are able. - Continue your stool softeners (examples: colace/docusate, senna, miralax) until no longer taking narcotics and stools are regular. ?? Pain Control Instructions: Continue Tylenol and ibuprofen scheduled and only take opiates as prescribed??for breakthrough painin the first few days after you get home.??You may fill less than the prescribed amount, and you should store them in a safe location in a childproof prescription bottle.??Any unused opiates should be returned to a prescription drop-box, such as the one at the [facility]. No one other than you should take your opiates, and you should not use them for anything other than your postoperative pain. You should not drive while taking opiates. ?? Please call the office with pain that is not controlled with this regimen. * Dea Jones DO: PERFORM Event Display: Discharge/Transfer Note Hospital Authored Date: Attending Attestation:??I have seen and evaluated this patient. ??I have discussed the case and itsmanagement with the resident and agree with the findings and plan as documented in the resident???snote. ??In to see patient,??having discomfort and feeling of 'marbles rolling around' in abdomen. DIscussed this may be gas. Discussed pain regimen going forward as well as bowel regimen. Advised use of abdominal binder as well. Patient prefers to go home than stay another night. Meeting milestones, all questions answered ?? Dea Jones, [facility] * Erica WHITE, Nancy: PERFORM, MODIFY, MODIFY Event Display: Patient Education/Instruction Authored Date: [id number] Inpatient Adult Discharge Instructions. [address] [address] Name: ADAMA SUTHERLAND : 1985?? Visit: 03/22/2024 10:52?? Current Date: 03/24/2024 13:18 ?? Account: [id number]?? Inpatient Adult Discharge Instructions We would like to thank you for allowing us to assist you with your healthcare needs. The following includes patient education materials and information regarding your injury/illness. Our entire staffstrives to provide an excellent experience for our patients and their families. PLEASE ENSURE YOU FOLLOW-UP PER THE INSTRUCTIONS BELOW! ?? YOUR OPINION IS IMPORTANT TO US! Please complete the survey you may receive by mail or email. Your feedback will be used to make improvements to the healthcare experiences of our patients and their families. Surveys are administered by [employer] ?? If further treatment with your primary care physician or another doctor is recommended, it is important for you to keep the appointment. Call your primary care physician or return to the Emergency Department immediately if your condition worsens, fails to improve, or new symptoms develop. If you need to find a doctor, you can call [facility] [employer] for a referral at [phone] or toll free at [phone]) or log in to [email or web address].. ?? [facility], in keeping with [facility] guidance, no longer requires face masks for staff, patientsor visitors in most situations. Similiar to time spent indoors at other locations, there is the chance that you were exposed to repiratory viruses during your time with us (such as flu or COVID-19). If you develop symptoms concerning for a viral respiratory infection, please seek testing (and treatment if indicated) from your medical provider or home test kit. ?? You can view and manage your care through the patient portal or by using a health care angélica of your choosing. [employer]) is a website that allows you to securely view your medical information including your hospital discharge summary, office visit summaries, medications and follow-up visits. You can also request appointments, renew medications, and request access to your medical information using a health care angélica of your choosing, or just ask a question. You can enroll at [email or web address] or register during your next office visit. You have been discharged from [facility], Patient Care Unit: W3??. If you have any questions regarding these instructions, including results of studies pending, afteryou leave, please call us and we will be happy to assist you 12/06. [facility] Your Care Team Attending Physician Chelsie Rubio MD?? Consulting Providers Chelsie Rubio MD?? Discharging Providers Bella Thornton DO Tests Performed Below is a partial list of the tests performed during your hospitalization. You may have had other tests and procedures not included in this list. Please discuss all test results with your provider. Deep Wound Culture w/ Gram Smear GLUCOSE POC Tissue Cult, Aerobic Results Tissue Cult, Gram Stain Results CT Angio Head Hyperacute Stroke CT Angio Neck Hyperacute Stroke CT Head-Hyper Acute Stroke MRI Brain W/O Contrast Anaerobic Culture?? Direct LDL?? Fungal Culture, Non-Blood?? Hemoglobin A1C (Monitoring)?? Primary Care Provider Jenny Cuevas MD? Advance Directive Health Care Proxy on File Yes - Health Care Proxy Discharge Vitals Temperature: 97.8 DegF Height: 162.56 cm Pulse Rate: 77 bpm Weight: 78.1 kg Respiratory Rate: 16 br/min Body Mass Index:??29.55 kg/m2??High Systolic Blood Pressure: 121 mm Hg Body surface area: 1.88 Diastolic Blood Pressure:??89 mm Hg??High ?? Oxygen Saturation: 97 % ?? Studies Pending All studies ordered during this hospital stay have been completed unless listed below. Please discuss all pending results with your provider listed above in these instructions. ?? Anaerobic Culture?? Direct LDL?? Fungal Culture, Non-Blood?? Hemoglobin A1C (Monitoring)?? What to do next Instructions From Your Doctor Please call your doctor if you note any of the following symptoms: - fever of 100.4 or greater - heavy vaginal bleeding - foul-smelling vaginal discharge - difficulty or burning with urination - nausea and vomiting with inability to tolerate food - pain not controlled by your prescribed medications - redness/swelling/drainage at incision(s) - shortness of breath or chest pain ?? In addition, please follow these steps to help your healing process: ?? - Do not drive while taking narcotics. Do not drive until cleared by your doctor. - Avoid lifting anything 15lbs or greater for 2 weeks or until cleared by your doctor. - Do not put anything in the vagina. No intercourse, tampons, or douching??for 8 weeks. - Stairs are OK but avoid multiple trips and go slowly. - Walk as often as you are able. - Continue your stool softeners (examples: colace/docusate, senna, miralax) until no longer taking narcotics and stools are regular. ?? Pain Control Instructions: Continue Tylenol and ibuprofen scheduled and only take opiates as prescribed??for breakthrough painin the first few days after you get home.??You may fill less than the prescribed amount, and you should store them in a safe location in a childproof prescription bottle.??Any unused opiates should be returned to a prescription drop-box, such as the one at the [facility]. No one other than you should take your opiates, and you should not use them for anything other than your postoperative pain. You should not drive while taking opiates. ?? Please call the office with pain that is not controlled with this regimen. ?? Orders? 03/24/24 11:56:00 EDT?? Scheduled Follow-Up Appointments Monday. 2023 10:40 AM EDT ?? With: Chelsie Rubio MD Where: [facility] [address] [place] [address]- Status: Pending You Need to Schedule the Following Appointments Follow Up with??Chelsie Rubio MD Discharge Medications ADAMA SUTHERLAND :1985 Visit Date:03/22/2024 Medications: Please continue your medications until treatment is completed or stopped by your provider. Medications not listed below should be discontinued. Discuss any questions related to medications with your provider. What How Much When Instructions Next Dose New Acetaminophen (acetaminophen 325 mg oral tablet) See instructions Refills: 1 3 tablet By Mouth Every 6-8 hours for the first 3 days, then every 6-8 hours as needed for pain afterwards not to exceed 4000 mg/ day ?? Pickup at [place] [address] 4pm if needed New Docusate (docusate sodium 100 mg oral capsule) 1 capsule Oral Twice a day as needed for for constipation Pickup at [place] [address] tonight New Ibuprofen (ibuprofen 600 mg oral tablet) 1 tab(s) Oral Every 6 hours Refills: 1 not to exceed 3200 mg/ day every 6 hours for the first 3 days, then every 6 hours as needed for pain ?? Pickup at [place] [address] 4 pm if needed New Nicotine (Nicorette Cinnamon Surge 4 mg oral transmucosal gum) 1 Each Chew Every 2 hours as needed for as needed for smoking cessation Pickup at [place] [address] when needed New Oxycodone (oxyCODONE 5 mg oral tablet) See instructions 0.5-1 tablet By Mouth Every 4-6 hours prn pain, not controlled by Ibuprofen and acetaminophen, As needed for as needed for pain ?? Pickup at [place] [address] 6:30 pm New Polyethylene Glycol 3350 (MiraLax oral powder for reconstitution) 17 gram Oral Daily dissolve in water before taking until having normal bowel movements ?? Pickup at [place] [address] when filled Unchanged Albuterol (Albuterol (Eqv-ProAir HFA) 90 mcg/ inh inhalation aerosol) 2 puff(s) Inhalation As needed for Wheezing/Shortness of Breath when needed Unchanged Albuterol (albuterol 2.5 mg/ 0.5 mL (0.5%) inhalation solution) 0.5 Milliliter Nebulized inhalation 4 times a day as needed for as needed for wheezing when needed Unchanged DimenhyDRINATE (Dramamine 50 mg oral tablet) 1 tab(s) Oral Every 6 hours as needed for for motion sickness when needed Unchanged Gabapentin (gabapentin 600 mg oral tablet) 1 tab(s) Oral Daily as directed Pharmacy Information [place] [address]: [address] [place] [address] [phone] Prescription Given During Visit Acetaminophen (acetaminophen 325 mg oral tablet) - , # 50 tablet, 1 Refills, 3 tablet By Mouth Every 6-8 hours for the first 3 days, then every 6-8 hours as needed for pain afterwardsnot to exceed 4000 mg/day, [place] [address] [phone]?? Docusate (docusate sodium 100 mg oral capsule) - 1 capsule = 100 mg, By Mouth, 2 times a day, # 60 capsule, 0 Refills, [place] [address] [phone]?? Ibuprofen (ibuprofen 600 mg oral tablet) - 1 tablet = 600 mg, By Mouth, Every 6 hours, # 40 tablet,1 Refills, not to exceed 3200 mg/day every 6 hours for the first 3 days, then every 6 hours as needed for pain, [place] [address] [phone]?? Nicotine (Nicorette Cinnamon Surge 4 mg oral transmucosal gum) - 1 each = 4 mg, Chew, Every 2 hours, # 160 each, 0 Refills, [place] [address] [phone]?? Oxycodone (oxyCODONE 5 mg oral tablet) - , # 10 tablet, 0 Refills, 0.5-1 tablet By Mouth Every 4-6 hours prn pain, not controlled by Ibuprofen and acetaminophen, [place] [address] [phone]?? Polyethylene Glycol 3350 (MiraLax oral powder for reconstitution) - 17 Gm, By Mouth, Daily, # 255 Gm, 0 Refills, dissolve in water before taking until having normal bowel movements, [place] [address] [phone]?? Laboratory Results Below is a partial list of the most recent Laboratory test results done prior to this discharge. You may have had other tests and procedures not included in this list. Please discuss all test resultswith your provider. 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 Bartholin's cyst?? Chronic pelvic pain syndrome?? Depression?? Fibroid uterus?? Education Materials Below is the list of Educational Leaflet Providered with your Discharge Instructions. [employer] Patient Education - Oxycodone Oral Tablet 5 mg?? [employer] Patient Education - Polyethylene Glycol 3350 Powder For Oral Solution?? [employer] Patient Education - Ibuprofen Oral Tablet?? [employer] Patient Education - Docusate Oral Capsule?? [employer] Patient Education - Acetaminophen Oral Tablet?? [employer] Patient Education - Discharge Instructions for Laparoscopic Hysterectomy?? Valuables and Belongings I fully understand and agree that [facility] accepts no responsibility for all my personal property including clothing, toilet articles, radios, jewelry, dentures, hearing aids, rings, money, or any other property that is in my possession or is brought to me after admission. I understand certain valuables may be placed in a hospital safe for a short period of time. I understand that the hospital is not liable for loss or damage due to accident, fire, or other natural occurrence while said property is in the safe. I accept full responsibility for any personal property that I keep with me, and will not hold the hospital responsible in case of loss or disappearance. I acknowledge that i have been encouraged to send valuables and belongings home. ?? Review of Valuable and Belonging List: With patient Possessions released to: to pacu Date for Pt to Sign Valuables/Belongings: 03/23/24 00:08:00 ?? Other Discharge Information ? Pulmonary Rehab Status?? Pulmonary Rehab Discharge Status?? Respiratory Rate: 16 br/min ? Common Emergency Awareness Tips IS IT A STROKE? Act FAST and Check for these signs: FACE Does the face look uneven? ARM Does one arm drift down? SPEECH Does their speech sound strange? TIME Call at any sign of stroke ?? Heart Attack Signs Chest discomfort: Most heart attacks involve discomfort in the center of the chest and lasts more than a few minutes, or goes away and comes back. It can feel like uncomfortable pressure, squeezing, fullness or pain. Discomfort in upper body: Symptoms can include pain or discomfort in one or both arms, back, neck, jaw or stomach. Shortness of breath: With or without discomfort. Other signs: Breaking out in a cold sweat, nausea, or lightheaded. Remember, MINUTES DO MATTER. If you experience any of these heart attack warning signs, call to get immediate medical attention! ?? Smoking can increase your chances of developing chronic health problems and can cause harmful effects to other family members in your house. If you smoke, you are strongly encouraged to quit. Please call [facility] [facility] at [phone] or [phone]-[facility] ([phone]) or log in to [email or web address] for referrals to smoking cessation programs. ?? 403 Suicide & Crisis Lifeline is available 12/06 if you or someone you know needs to find a reason to keep living. By calling 641 you'll be connected to a skilled, trained counselor at a crisis center in your area. INPATIENT DISCHARGE INSTRUCTIONS SIGNATURE PAGE ADAMA SUTHERLAND Location:[facility] Registration Date and Time:03/22/2024 10:52 EDT Primary Care Physician: Jenny Cuevas MD, Attending Physician: Chelsie Rubio MD, I ADAMA SUTHERLAND, have received the above patient education materials/instructions and have verbalized understanding. If ambulance or transport services are being used I further acknowledge being given a choice of service. ?? If you need to contact me, please call me at this number: . Patient/Installers Mechanical Name: Patient/Installers Mechanical Signature: Relationship to Patient: Witness Name/Signature: Date: * Nancy Maldonado RN: PERFORM Event Display: Patient Education Leaflets Authored Date: [id number] Oxycodone Oral Tablet 5 mg ?? [id number] Oxycodone Oral Tablet 5 mg Uses For pain. ?? Instructions Some brands of this medicine should be swallowed whole while other brands may be crushed. Ask your pharmacist how you should take your medicine. This medicine may be taken with or without food. Swallow with a full glass (8 oz) of water unless your doctor gives you different instructions. Store at room temperature away from heat, light, and moisture. Do not keep in the bathroom. Please ask your doctor, nurse, or pharmacist how to discard unused medicines safely. To reduce constipation, eat high fiber foods, drink plenty of water and exercise. Avoid grapefruit and grapefruit juice while on this medicine. Drug interactions can change how medicines work or increase risk for side effects. Tell your healthcare providers about all medicines taken. Include prescription and vtzp-cof-wdmobmf medicines, vitamins, and herbal medicines. Speak with your doctor or pharmacist before starting or stopping any medicine. Tell your doctor if symptoms do not get better or if they get worse. Parts of this medicine may come out in the stool. This is normal. ?? Cautions This medicine has an opioid. Opioids help many people but may cause addiction, especially if used for a long time. The addiction risk is higher if you have a substance use disorder (overuse of or addiction to drugs or alcohol). Ask your doctor about the benefits and risks. Ask your doctor or pharmacist if you should have naloxone on hand to treat opioid overdose. Teach your family or household members about the signs of an opioid overdose and how to treat it. If you stop this medicine suddenly after using it for a long time, you may have withdrawal. Your doctor may slowly lower your dose before stopping it. Tell your doctor right away if you have symptoms, such as unusual sweating, watering eyes, runny nose, chills, diarrhea, yawning, muscle aches, restlessness, anxiety, trouble sleeping, or thoughts of suicide. Tell your doctor and pharmacist if you ever had an allergic reaction to a medicine. Do not use the medication any more than instructed. If possible, avoid using with alcohol, marijuana, or other medicines that can cause dizziness or drowsiness. These include allergy/cold products, muscle relaxers, sleep aids, and pain relievers. Your ability to stay alert or to react quickly may be impaired by this medicine. Do not drive or operate machinery until you know how this medicine will affect you. This medicine passes into breast milk. Ask your doctor before . This medicine can hurt a new baby in the womb. If you become while on this medicine, tell your doctor immediately. Your doctor may switch you to a different medicine. This medicine should be used with caution in patients with breathing difficulties. Call your doctor right away if you notice slow or shallow breathing. Do not share this medicine with anyone who has not been prescribed this medicine. Some patients have serious side effects from this medicine. Ask your pharmacist to show you the information from the Food and Drug Administration (FDA) and discuss it with you. ?? Side Effects The following is a list of some common side effects from this medicine. Please speak with your doctor about what you should do if you experience these or other side effects. ??? decreased appetite ??? constipation ??? dizziness or drowsiness ??? lightheadedness ??? nausea and vomiting Call your doctor or get medical help right away if you notice any of these more serious side effects: ??? agitated feeling or trouble sleeping ??? decreased awareness or responsiveness ??? breathing interruption during sleep ??? shallow, irregular breathing ??? changes in memory, mood, or thinking ??? confusion ??? fainting ??? hallucinations (unusual thoughts, seeing or hearing things that are notreal) ??? seizures ??? severe stomach or bowel pain ??? unusual or unexplained tiredness or weakness ??? difficulty or discomfort urinating ??? weight loss A few people may have an allergic reaction to this medicine. Symptoms can include difficulty breathing, skin rash, itching, swelling, or severe dizziness. If you notice any of these symptoms, seek medical help quickly. ?? Extra Please speak with your doctor, nurse, or pharmacist if you have any questions about this medicine. ?? [email or web address] IMPORTANT NOTE: This document tells you briefly how to take your medicine, but it does not tell youall there is to know about it. Your doctor or pharmacist may give you other documents about your medicine. Please talk to them if you have any questions. Always follow their advice. There is a more complete description of this medicine available in [employer]. Scan this code on your smartphone or tablet or use the web address below. You can also ask your pharmacist for a printout. If you have any questions, please ask your pharmacist. The display and use of this drug information is subject to Terms of Use. Copyright(c) 2023 [employer]. ?? The [employer]. All rights reserved. This information is not intended as a substitute for professional medical care. Always follow your healthcare professional's instructions. ?? * Nancy Maldonado RN: PERFORM Event Display: Patient Education Leaflets Authored Date: [id number] Polyethylene Glycol 3350 Powder For Oral Solution ?? [id number] Polyethylene Glycol 3350 Powder For Oral Solution Brands: ClearLax, Gavilax, GentleLax, HealthyLax, Miralax, PureLax Uses For bowel movement. ?? Instructions Mix the medicine with 4-8 oz. (120-240 mL) of water or juice, then drink. Drink the medicine immediately after mixing. This medicine may be taken with or without food. Keep this medicine at room temperature. Protect from moisture and high humidity. Keep the medicine away from heat and light. Frequent or remote computer terminal operator use of laxatives can cause your bowels to depend on them. Do not use laxatives for more than one week unless directed by your doctor. To reduce constipation, eat high fiber foods, drink plenty of water and exercise. Tell your doctor and pharmacist about all your medicines. Include prescription and aqyp-mbd-nudghanazciweivt, vitamins, and herbal medicines. Tell your doctor if symptoms do not get better or if they get worse. ?? Cautions Tell your doctor and pharmacist if you ever had an allergic reaction to a medicine. Do not use the medication any more than instructed. It is unknown if this medicine passes into breast milk. Ask your doctor before . During , this medicine should be used only when clearly needed. Talk to your doctor about the risks and benefits. Do not start or stop any other medicines without first speaking to your doctor or pharmacist. ?? Side Effects The following is a list of some common side effects from this medicine. Please speak with your doctor about what you should do if you experience these or other side effects. ??? bloating ??? diarrhea ??? excess gas ??? nausea ??? stomach upset or abdominal pain Call your doctor or get medical help right away if you notice any of these more serious side effects: ??? severe or persistent abdominal pain ??? severe, watery or bloody diarrhea ??? stomach pain ??? blood in stool A few people may have an allergic reaction to this medicine. Symptoms can include difficulty breathing, skin rash, itching, swelling, or severe dizziness. If you notice any of these symptoms, seek medical help quickly. ?? Extra Please speak with your doctor, nurse, or pharmacist if you have any questions about this medicine. ?? https://api.meducation.CEYX/V2.0/fdbpem/1202 IMPORTANT NOTE: This document tells you briefly how to take your medicine, but it does not tell youall there is to know about it. Your doctor or pharmacist may give you other documents about your medicine. Please talk to them if you have any questions. Always follow their advice. There is a more complete description of this medicine available in [facility]. Scan this code on your smartphone or tablet or use the web address below. You can also ask your pharmacist for a printout. If you have any questions, please ask your pharmacist. The display and use of this drug information is subject to Terms of Use. Copyright(c) 2023 [employer]. ?? The [employer]. All rights reserved. This information is not intended as a substitute for professional medical care. Always follow your healthcare professional's instructions. ?? * Nancy Maldonado RN: PERFORM Event Display: Patient Education Leaflets Authored Date: [id number] Ibuprofen Oral Tablet ?? [id number] Ibuprofen Oral Tablet Brands: Addaprin, Advil, Counteract IB, Genpril, Ibu, Ibuprohm, Motrin, Proprinal, Elgin 8, Wal-Profen Uses This medicine is used for the following purposes: ??? arthritis ??? fever ??? gout ??? pain ?? Instructions Sit or stand upright for 10 minutes after taking the medicine. Do not lie down. Swallow with a full glass (8 oz) of water unless your doctor gives you different instructions. You may take with food to prevent stomach upset. Store at room temperature away from heat, light, and moisture. Do not keep in the bathroom. Drink plenty of water while on this medicine. This medicine can make you sensitive to the sun. Use sunscreen or protective clothing when in sun. Drug interactions can change how medicines work or increase risk for side effects. Tell your healthcare providers about all medicines taken. Include prescription and bjdk-tcv-jyxzuxj medicines, vitamins, and herbal medicines. Speak with your doctor or pharmacist before starting or stopping any medicine. Tell your doctor if symptoms do not get better or if they get worse. Talk to your doctor before taking other medicines, including aspirins and ibuprofen containing products. Speak to your doctor about which medicines are safe to use while you are on this medicine. ?? Cautions Tell your doctor and pharmacist if you ever had an allergic reaction to a medicine. This medicine is associated with an increased risk of serious heart problems, heart attack, and stroke. Please speak with your doctor about the risks and benefits of using this medicine. Contact yourdoctor immediately if you experience chest pain or difficulty breathing. This medicine may cause bleeding from the stomach or bowels. Stop this medicine and call your doctor right away if you have pain in the stomach, red or dark tarry stools, or vomit that looks like coffee grounds. Do not use the medication any more than instructed. Your ability to stay alert or to react quickly may be impaired by this medicine. Do not drive or operate machinery until you know how this medicine will affect you. Please check with your doctor before drinking alcohol while on this medicine. Avoid smoking while on this medicine. Smoking may increase your risk for stomach bleeding. This medicine passes into breast milk. Ask your doctor before . This medicine can hurt a new baby in the womb. If you become while on this medicine, tell your doctor immediately. Your doctor may switch you to a different medicine. Do not share this medicine with anyone who has not been prescribed this medicine. Some patients have serious side effects from this medicine. Ask your pharmacist to show you the information from the Food and Drug Administration (FDA) and discuss it with you. ?? Side Effects The following is a list of some common side effects from this medicine. Please speak with your doctor about what you should do if you experience these or other side effects. ??? constipation or diarrhea ??? dizziness ??? excess gas ??? high blood pressure ??? nausea and vomiting ??? stomach upset or abdominal pain Call your doctor or get medical help right away if you notice any of these more serious side effects: ??? bleeding or bruising ??? chest or jaw pain ??? coughing up blood or vomit that looks like coffee grounds ??? swelling of the legs, feet, and hands ??? fever ??? signs of kidney damage (such as change in urine color or bubbly urine) ??? signs of liver damage (such as yellowing of eye or skin, dark urine, or unusual tiredness) ??? mood changes ??? sore or stiff neck ??? ringing in the ears ??? shortness of breath ??? bloody or dark, tarry stools ??? symptoms of stroke (such as one-sided weakness, slurred speech, confusion) ??? excessive or unusual sweating ??? swelling in the neck or throat??? blurring or changes of vision ??? severe or persistent vomiting ??? sudden or unexplained weight gain A few people may have an allergic reaction to this medicine. Symptoms can include difficulty breathing, skin rash, itching, swelling, or severe dizziness. If you notice any of these symptoms, seek medical help quickly. ?? Extra Please speak with your doctor, nurse, or pharmacist if you have any questions about this medicine. ?? https://Meme.Hipbone/V2.0/fdbpem/9368 IMPORTANT NOTE: This document tells you briefly how to take your medicine, but it does not tell youall there is to know about it. Your doctor or pharmacist may give you other documents about your medicine. Please talk to them if you have any questions. Always follow their advice. There is a more complete description of this medicine available in [facility]. Scan this code on your smartphone or tablet or use the web address below. You can also ask your pharmacist for a printout. If you have any questions, please ask your pharmacist. The display and use of this drug information is subject to Terms of Use. Copyright(c) 2023 [employer]. ?? The [employer]. All rights reserved. This information is not intended as a substitute for professional medical care. Always follow your healthcare professional's instructions. ?? * Grazyna Goodwin MD: PERFORM Event Display: Discharge/Transfer Note Hospital Authored Date: Patient: ??ADAMA SUTHERLAND ? Age:??38 Years?Sex:??Female?:??1985?? Admit Date Admission Date: 03/22/2024 Discharge Date 03/23/2024 [facility] Course Adama is a 38 year old admitted for a robotic-assisted total laparoscopic hysterectomy, bilateralsalpingectomy, cystoscopy in the setting of uterine fibroids. Procedure was??uncomplicated. EBL 100cc. Post-operative course complicated by left hemiparesis in PACU. Acute Stroke was called and MERCHANDISE HANDLER pr esented to bedside for evaluation. CT head was obtained without evidence of any acute??abnormality.Per Neurology recommendations, a loading dose of Aspirin was provided with the plan to continue Aspirin 81mg daily. Adama remained on telemetry overnight. Left arm sensory and motor deficits had completely resolved in the morning. Formal??read of??MRI brain w/o contrast??still pending. Consider PM discharge pending MRI wet read. She is otherwise meeting post-operative milestones.? Objective/Physical Exam on Day of Discharge Vitals & Measurements T:??97.5?F?? HR:??106??(Peripheral)?? RR:??18?? BP:??123/62?? SpO2:??93%?? HT:??162.56??cm?? WT:??78.1??kg?? BMI:??29.55?? Constitutional: No acute distress, resting comfortably.?? Respiratory: Normal work of breathing.?? Cardiovascular: Regular rate and rhythm Abdomen/GI: Soft, non-distended, no guarding or??rebound tenderness. Appropriately tender.??x5 portincisions??appear??clean, dry and intact. Gynecologic: No blood on pad.?? Extremities: Equal strength/sensation??of left and right upper extremity.?? Neurological/Psychiatric: Mood and affect congruent and stable. Assessment/Plan Assessment:??Adama is a 38 year old POD1 from a robotic-assisted total laparoscopic hysterectomy,bilateral salpingectomy, cystoscopy in the setting of uterine fibroids. Post-operative course complicated by left hemiparesis requiring a Code Stroke to be called. CT brain obtained without evidence of intracranial pathology. Motor and sensory symptoms have since resolved. MRI brain w/o contrast obtained and formal read pending (wet read negative). Adama is otherwise meeting post-operative milestones. Pain is overall well controlled. Tolerating PO intake without difficulty. She is voiding spontaneously. Appropriate for discharge pending Attending review and formal read of MRI. Day team to follow-up with Neurology regarding outpatient recommendations and follow-up. Future Appointments Monday 10:40 AM EDT ?? With: Joanne CHEUNG, Chelsie Where: [facility] [address] 4th [place] [address]- Status: Pending Procedures Performed This Visit Robotic XI Hysterectomy Salpingo-Oophore Cystoscopy Discharge Medications ???Albuterol (Albuterol (Eqv-ProAir HFA) 90 mcg/inh inhalation aerosol)???Albuterol (albuterol 2.5 mg/0.5 mL (0.5%) inhalation solution)???DimenhyDRINATE (Dramamine 50 mg oral tablet)???Gabapentin (ga bapentin 600 mg oral tablet) * Dea Jones DO: PERFORM Event Display: Discharge/Transfer Note Hospital Authored Date: Attending Attestation:??I have seen and evaluated this patient. ??I have discussed the case and itsmanagement with the resident and agree with the findings and plan as documented in the resident???snote. ?? Patient states no longer having left sided weakness. meeting milestones, d/c pending MRI read ?? Dea Jones DO [facility] * Loren CHEUNG, Jayde Collins: PERFORM Event Display: Discharge/Transfer Note Hospital Authored Date: Patient not discharged as she was feeling anxious and restless secondary to the opioids in the setting of a??history of opioid use disorder. She would like to try to continue to take the opioids as needed for post-operative pain, but to help mitigate her symptoms, she would like to try clonidine. PRN 0.1mg PO Clonidine ordered. Patient Care team information Care Team Personnel Name: Jenny Cuevas MD Position: Reference Physician Member Role: PCP Address: Address: [address] [place] [place] [address]- Name: Kavita Weiner RN Position: JERI RN Supv Member Role: Primary Care Nurse Care Team Related Persons Name: USAMA BOB Address: home [address] [place], [place] Name: ALIYAH BOB Address: home [address] [place], [place] Name: MARCE MENDIOLA Address: home [address] [place] [address]
--- OUTSIDE RECORDS SUMMARY | 2024-04-30 12:58 | XMS_ITS | Continuity of Care Document ---
Author Organization [facility] Address [address], [address] [place] [address]- Care Team Providers Care Forest Biometrics Professor Name Role Phone Jenny Cuevas MD Primary Care Phys ician [id number] - [facility] [address], [address] [place] [address]- Attending Physician: Chelsie Rubio MD Admitting Physician: Chelsie Rubio MD Referring Physician: Jenny Cuevas MD Allergies, Adverse Reactions, Alerts Substance Reaction Severity Status amoxicillin Moderate Active predniSONE Hallucinogen dependence, episodic Active naltrexone Active TraMADol Hydrochloride 1 Act kevan 1stomach pain, brain fog Problem List Condition Confirmation Course Effective Dates [...] Physician Member Role: PCP Address: Address: [address] [facility] [place] [address]- Name: Kavita Weiner RN Position: LILIANS RN Supv Member Role: Primary Care Nurse Care Team Related Persons Name: USAMA BOB Address: home [address] [place] [address] Name: ALIYAH BOB Address: home [address] [place] [address] Name: MARCE MENDIOLA Address: home [address] [place] [id number]
--- OUTSIDE RECORDS SUMMARY | 2024-04-30 12:58 | XMS_ITS | Continuity of Care Document ---
Author Organization [facility] Address [address] [facility] [address], [address] [place] [address]- Care Team Providers Care Youth Associate Name Role Phone Jenny Cuevas MD Primary Care Phys ician [place] [facility] [place]23 - 01/12/24 [facility] [address] [facility], 4th [place] [address]- Allergies, Adverse Reactions, Alerts Substance Reaction Severity Status amoxicillin Moderate Active predniSONE Hallucinogen dependence, episodic Active naltrexone Active TraMADol Hydrochloride 1 Act kevan 1stomach pain, brain fog Medications Dramamine 50 mg oral tablet 1 tablet = 50 mg, By Mouth, Every 6 hours, PRN for motion sickness, # 36 tablet, 0 Refills, Maintenance, 11/27/23 15:54:00 EST, Tablet, [id number], Partial fill upon patient request if the prescription is for a schedule II opioid drug., 83.91,... Start Date: 11/27/23 Status: Ordered Problem List Condition Confirmation Course [...] Physician Member Role: PCP Address: Address: [address] [facility] [place] [address]- Name: Kavita Weiner RN Position: LILIANS RN Supv Member Role: Primary Care Nurse Care Team Related Persons Name: USAMA BOB Address: home [address] [place] [address] Name: ALIYAH BOB Address: home [address] [place] [address] Name: MARCE MENDIOLA Address: home [address] [place] [address]
--- OUTSIDE RECORDS SUMMARY | 2024-04-30 12:58 | XMS_ITS | Continuity of Care Document ---
Author Organization [facility] Address [address] [facility], 4t [address] [place] [address]- Care Team Providers Care Agricultural Purchasing Agent Name Role Phone Pebbles Montez MD, Jenyn Primary Care Phys ician [place] [facility] [place] Date(s): 11/11/20 - 01/20/21 [facility] [address], 4th [address] [place] [address]- Attending Physician: Usha Abreu MD Referring Physician: Blu Vuong MD Allergies, Adverse Reactions, Alerts Substance Reaction Severity Status amoxicillin Active predniSONE Hallucinogen dependence, episodic Active naltrexone Active TraMADol Hydrochloride 1 Act kevan 1stomach pain, brain fog Medications clonazePAM 0.5 mg oral tablet 2 tablet = 1 mg, By Mouth, Daily at bedtime, 0 Refills, Maintenance, 10/11/20 14:26:00 EST, Tablet,Partial fill upon patient request Start Date: 10/11/20 Status: Ordered Social History Social History Type Response Smoking Status 10 or more cigarette s (1/2 pack or more)/day in last 30 days entered on: 03/15/19 Sex
--- OUTSIDE RECORDS SUMMARY | 2024-04-30 12:58 | XMS_ITS | Continuity of Care Document ---
Author Organization [facility] [employer] [facility] Address [address] [facility], [address] [place] [address]- Care Team Providers Care Petroleum Geologist Name Role Phone Pebbles Montez MD, Jenny Primary Care Phys ician [id number] Date(s): 07/12/23 - 08/16/23 [facility] [employer] [address], 4th [place] [address]- Attending Physician: Chelsie Rubio MD Admitting Physician: [...] 06/14/21 14:16:00 EDT, Route to Pharmacy Electronically, [facility] #[id number] Tablet Start Date: 06/14/21 Status: Ordered Ativan [...] Refills, Maintenance, 03/05/21 21:49:00 EDT, Tablet, [id number], Partial fill upon patient request if the [...] Reference Physician Member Role: PCP Address: Address: [address] [place] [address] Medical [place], [place] [address] Name: Regine WHITE, Kavita Position: S RN Supv Member Role: Primary Care Nurse Care Team Related Persons Name: USAMA BOB Address: home [address] [place] [address] Name: ALIYAH BOB Address: home [address] [place], [place] Name: MARCE MENDIOLA Address: home [address] [place] [id number]
--- OUTSIDE RECORDS SUMMARY | 2024-04-30 12:58 | XMS_ITS | Continuity of Care Document ---
Author Organization [facility] Address [address] 4t [address] [place] [address]- Care Team Providers Care Hand Scraper Name Role Phone Pebbles Montez MD, Jenny [facility] Date(s): 02/15/21 - 03/17/21 [facility] [address], 4th [address] [place] [id number] Attending Physician: Patricia Singer Admitting Physician: AdmtrPatricia Referring Physician: Admtr, Ar8 Allergies, Adverse Reactions, Alerts Substance Reaction Severity [...] 0 Refills, Maintenance, 03/05/21 21:49:00 EDT, Tablet, [facility]/pharmacy #[id number], Partial fill upon patient request if the prescription is for a schedule II opioid drug., 163, cm, 03/05/21 20:10:00 EDT,... Start Date: 03/05/21 Status: Ordered Social History Social History Type Response Smoking Status 10 or more cigarette s (1/2 pack or more)/day in last 30 days entered on: 03/15/19 Sex
--- OUTSIDE RECORDS SUMMARY | 2024-04-30 12:58 | XMS_ITS | Continuity of Care Document ---
Author Organization [facility] Address [address] [place] [address], [address] [place] [address]- Care Team Providers Care Fuse Cutter Name Role Phone Pebbles Montez MD, Jenny [id number] [address] [facility], 4th [place] [address]- Allergies, Adverse Reactions, Alerts Substance Reaction Severity Status amoxicillin blacked out change in behavior/mental status Moderate Active Suboxone blacked out Active TraMADol Hydrochloride 1 gi upset Act kevan predniSONE Hallucinogen dependence, episodic Active naltrexone panic attack/aniexty Active 1stomach pain, brain fog Medications acetaminophen 325 mg oral tablet See Instructions, 3 tablet By Mouth Every 6-8 hours for the first 3 days, then every 6-8 hours as needed for pain afterwards not to exceed 4000 mg/day, # 50 tablet, Refills 1, Tot. Refills 1, Maintenance, 03/24/24 10:44:00 EDT, Instructions Replace R... Start Date: 03/24/24 Status: Ordered Albuterol (Eqv-ProAir HFA) 90 mcg/inh inhalation aerosol [...] 03/24/24 10:44:00 EDT, Route to Pharmacy Electronically, [facility], Partial fill upon patient request if the presc... Start Date: 03/24/24 Status: Ordered Dramamine 50 mg oral tablet 1 tablet = 50 mg, By Mouth, Every 6 hours, PRN for motion sickness, # 36 tablet, 0 Refills, Maintenance, 11/27/23 15:54:00 EST, Tablet, [facility]/pharmacy #[id number], Partial fill upon patient request if the prescription is for a schedule II opioid drug., 83.91,... Start Date: 11/27/23 Status: Ordered gabapentin 600 mg oral tablet 1 tablet = 600 mg, By Mouth, Daily, # 30 tablet, 1 Refills, Maintenance, 02/26/24 15:30:00 EDT, [facility]/pharmacy #[id number], Partial fill upon patient request if [...] Pharmacy Electronical... Start Date: 03/24/24 Status: Ordered MiraLax oral powder for reconstitution = 17 Gm, By Mouth, Daily, dissolve in water before taking until having normal bowel movements, # 255 Gm, 0 Refills, Maintenance, 03/24/24 10:45:00 EDT, REC Powder, [facility], Partial fill upon patient request if the prescription is for... Start Date: 03/24/24 Status: Ordered Nicorette Cinnamon Surge 4 mg oral transmucosal gum 1 each = 4 mg, Chew, Every 2 hours, PRN as needed for smoking cessation, # 160 each, 0 Refills, Acute 05/24/24 12:00:00 EDT, 03/24/24 11:55:00 EDT, Gum, [facility], Partial fill upon patient request if the prescription is for a schedule... Start Date: 03/24/24 Stop Date: 05/24/24 Status: Ordered Nicorette Cinnamon Surge 4 mg oral transmucosal gum 1 each = 4 mg, Chew, Every 2 hours, PRN as needed for smoking cessation, # 160 each, 0 Refills, Acute 04/25/24 10:36:00 EDT, 03/25/24 12:00:00 EDT, Gum, [id number], Partial fill uponpatient request if the prescription is for a schedu... Start Date: 03/25/24 Stop Date: 04/25/24 Status: Ordered oxyCODONE 5 mg oral tablet See Instructions, PRN, 0.5-1 tablet By Mouth Every 4-6 hours prn pain, not controlled by Ibuprofen and acetaminophen, # 10 tablet, Refills 0, Tot. Refills 0, Acute 04/26/24 11:00:00 EDT, as needed for pain, 03/24/24 10:44:00 EDT, Instructions Replace... Start Date: 03/24/24 Stop Date: 04/26/24 Status: Ordered Problem List Condition Confirmation Course [...] Reference Physician Member Role: PCP Address: Address: [address] [place] [address] [place] [address]- Name: Kavita Weiner RN Position: LILIANS RN Supv Member Role: Primary Care Nurse Care Team Related Persons Name: USAMA BOB Address: home [address] [place] [address] Name: ALIYAH BOB Address: home [address] [place] [address] Name: MARCE MENDIOLA Address: home [address] [place] [address]
--- OUTSIDE RECORDS SUMMARY | 2024-04-30 12:58 | XMS_ITS | Continuity of Care Document ---
Author Organization [facility] Address [address] [place] [address], [address]t [place] [address]- Care Team Providers Care District Representative Name Role Phone Pebbles Montez MD, Jenny Primary Care Phys ician [id number] Date(s[facility]/25/24 - 04/24/24 [facility] [address] [facility], 4th [place] [address]- Allergies, Adverse Reactions, Alerts Substance Reaction Severity Status amoxicillin blacked out change in behavior/mental status Moderate Active predniSONE Hallucinogen dependence, episodic Active naltrexone panic attack/aniexty Active Suboxone blacked out Active TraMADol Hydrochloride 1 gi upset Act kevan 1stomach pain, brain fog Medications acetaminophen 325 [...] EDT, Route to Pharmacy Electronically, [facility], Partial fill upon patient request if the presc... Start Date: 03/24/24 Status: Ordered Dramamine 50 mg oral tablet 1 tablet = 50 mg, By Mouth, Every 6 hours, PRN for motion sickness, # 36 tablet, 0 Refills, Maintenance, 11/27/23 15:54:00 EST, Tablet, [facility]/pharmacy #[id number], Partial fill upon patient request if the prescription is for a schedule II opioid drug., 83.91,... Start Date: 11/27/23 Status: Ordered gabapentin 600 mg oral tablet 1 tablet = 600 mg, By Mouth, Daily, # 30 tablet, 1 Refills, Maintenance, 02/26/24 15:30:00 EDT, [facility]/pharmacy #[id number], Partial fill upon patient request if [...] 03/24/24 10:45:00 EDT, REC Powder, [facility] 3, Partial fill upon patient request if the prescription is for... Start Date: 03/24/24 Status: Ordered Nicorette Cinnamon Surge 4 mg oral transmucosal gum 1 each = 4 mg, Chew, Every 2 hours, PRN as needed for smoking cessation, # 160 each, 0 Refills, Acute 05/24/24 12:00:00 EDT, 03/24/24 11:55:00 EDT, Gum, [facility], Partial fill upon patient request if the prescription is for a schedule... Start Date: 03/24/24 Stop Date: 05/24/24 Status: Ordered Nicorette Cinnamon Surge 4 mg oral transmucosal gum 1 each = 4 mg, Chew, Every 2 hours, PRN as needed for smoking cessation, # 160 each, 0 Refills, Acute 04/25/24 10:36:00 EDT, 03/25/24 12:00:00 EDT, [facility], [id number], Partial fill uponpatient request if the prescription [...] Reference Physician Member Role: PCP Address: Address: [address] [place] [address] [place] [address]- Name: Kavita Weiner RN Position: JERI RN Supv Member Role: Primary Care Nurse Care Team Related Persons Name: USAMA BOB Address: home [address] [place] [id number] Name: ALIYAH BOB Address: home [address] [place] [address] Name: MARCE MENDIOLA Address: home [address] [place] [address]
--- OUTSIDE RECORDS SUMMARY | 2024-04-30 12:58 | XMS_ITS | Continuity of Care Document ---
Author Organization [facility] Address [address] [place] [address], [address] [place] [address]- Care Team Providers Care Mine Supervisor Name Role Phone Pebbles Montez MD, Jenny Primary Care Phys ician [place] [facility] [place] [id number] Date(s): 02/26/24 - 03/27/24 [facility] [address] [facility], [address] [place] [address]- Attending Physician: Patricia Singer Admitting Physician: AdmPatricia [...] 03/24/24 10:44:00 EDT, Route to Pharmacy Electronically, [facility] 3, Partial fill upon patient request if the presc... Start Date: 03/24/24 Status: Ordered Dramamine 50 mg oral tablet 1 tablet = 50 mg, By Mouth, Every 6 hours, PRN for motion sickness, # 36 tablet, 0 Refills, Maintenance, 11/27/23 15:54:00 EST, Tablet, [facility]/pharmacy #[id number], Partial fill upon patient request if the prescription is for a schedule II opioid drug., 83.91,... Start Date: 11/27/23 Status: Ordered gabapentin 600 mg oral tablet 1 tablet = 600 mg, By Mouth, Daily, # 30 tablet, 1 Refills, Maintenance, 02/26/24 15:30:00 EDT, [facility]/pharmacy #[id number], Partial fill upon patient request if [...] Refills, Maintenance, 03/24/24 10:45:00 EDT, REC Powder, [facility], Partial fill upon patient request if the prescription is for... Start Date: 03/24/24 Status: Ordered Nicorette Cinnamon Surge 4 mg oral transmucosal gum 1 each = 4 mg, Chew, Every 2 hours, PRN as needed for smoking cessation, # 160 each, 0 Refills, Acute 05/24/24 12:00:00 EDT, 03/24/24 11:55:00 EDT, Gum, [facility], Partial fill upon patient request if the prescription is for a schedule... Start Date: 03/24/24 Stop Date: 05/24/24 Status: Ordered Nicorette Cinnamon Surge 4 mg oral transmucosal gum 1 each = 4 mg, Chew, Every 2 hours, PRN as needed for smoking cessation, # 160 each, 0 Refills, Acute 04/25/24 10:36:00 EDT, 03/25/24 12:00:00 EDT, Gum, [facility][id number], Partial fill uponpatient request if the prescription [...] Reference Physician Member Role: PCP Address: Address: [address] [place] [address] [place], [place] [address] Name: Kavita Weiner RN Position: JERI RN Supv Member Role: Primary Care Nurse Care Team Related Persons Name: USAMA BOB Address: home [address] [place] [address] Name: ALIYAH BOB Address: home [address] [place] [address] Name: MARCE MENDIOLA Address: home [address] [place] [address]
--- OUTSIDE RECORDS SUMMARY | 2024-04-30 12:58 | XMS_ITS | Continuity of Care Document ---
Author Organization [facility] Address [address] [facility], 4t [place] [address]- Care Team Providers Care Toe Sewer Name Role Phone Pebbles Montez MD, Jenny Primary [facility] Phys [facility] [id number] Date(s): 02/19/21 - 04/14/21 [facility] [address] [facility], [address] [place] [address]- Attending Physician: Shasta Graham MD Admitting Physician: Shasta Graham MD Referring Physician: Jenny Cuevas MD Allergies, [...] 0 Refills, Maintenance, 03/05/21 21:49:00 EDT, Tablet, [facility]/pharmacy #[id number], Partial fill upon patient request if the prescription is for a schedule II opioid drug., 163, cm, 03/05/21 20:10:00 EDT,... Start Date: 03/05/21 Status: Ordered Social History Social History Type Response Smoking Status 10 or more cigarette s (1/2 pack or more)/day in last 30 days entered on: 03/15/19 Sex
--- OUTSIDE RECORDS SUMMARY | 2024-04-30 12:58 | XMS_ITS | Continuity of Care Document ---
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 Refills 0, Maintenance, as needed for pain, 06/14/21 14:16:00 EDT, Route to Pharmacy Electronically, [facility]/pharmacy #[id number] Tablet Start Date: 06/14/21 Status: Ordered LORazepam 1 mg oral tablet 1 tablet = 1 mg, By Mouth, 2 times a day, PRN as needed for anxiety, 0 Refills, Maintenance, 06/14/21 11:16:00 EDT, Tablet, Partial fill upon patient request if the prescription is for a schedule II opioid drug. Start Date: 06/14/21 Status: Ordered OxyCODONE IR Tablet 5 mg, Tablet, By Mouth, Every 4 hours, in PACU ONLY, if patient can tolerate PO, PRN for Pain , Moderate, Routine, 06/14/21 13:41:00 EDT Start Date: 06/14/21 Stop Date: 06/21/21 Status: Ordered Vital Signs Most recent to oldest [Reference Range]: 1 2 3 Weight 85.5 kg (06/14/21 11:10 AM) Oxygen Saturation [94-100 %] 100 % (06/14/21 3:45 PM) 99 % (06/14/21 3:15 PM) 100 % (06/14/21 11:10 AM) Pulse Rate [55-90 bpm] 84 bpm (06/14/21 11:10 AM) Blood Pressure [90-138/55-84 mm Hg] 114/72mm Hg (06/14/21 3:15 PM) 114/82mm Hg (06/14/21 11:10 AM) Respiratory Rate [16-30 br/min] 16 br/min (06/14/21 3:33 PM) 12 br/min *L* (06/14/21 3:15 PM) 12 br/min *L* (06/14/21 11:10 AM) Temperature [96.8-100.4 DegF] 98.8 DegF (06/14/21 3:15 PM) 98 DegF (06/14/21 11:10 AM) Mode of Delivery (Oxygen) Room air (06/14/21 3:45 PM) Room air (06/14/21 3:15 PM) Room air (06/14/21 11:10 AM) Blood pressure sites Arm, right (06/14/21 3:15 PM) Temperature Route Temporal (06/14/21 3:15 PM) Temporal (06/14/21 11:10 AM)
--- OUTSIDE RECORDS SUMMARY | 2024-04-30 12:58 | XMS_ITS | Continuity of Care Document ---
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 Name Role Phone Pebbles Montez MD, Jenny Primary Care Phys ici [id number] Date(s): 05/11/23 - 06/10/23 [facility] [address], 4th [place] [address]- Allergies, Adverse Reactions, Alerts Substance Reaction Severity Status amoxicillin Moderate Active predniSONE Hallucinogen dependence, episodic Active naltrexone Active TraMADol Hydrochloride 1 Act kevan 1stomach pain, brain fog Medications acetaminophen-oxyCODONE 325 mg-5 mg oral tablet 1, tablet, By Mouth, Every 4 hours, PRN, # 5 tablet, Refills 0, Tot. Refills 0, Maintenance, as needed for pain, 06/14/21 14:16:00 EDT, Route to Pharmacy Electronically, [facility]/pharmacy #[id number] Tablet Start Date: 06/14/21 Status: [...] Reference Physician Member Role: PCP Address: Address: [address] [place] [address] Medical [place], [place] [address] Name: Kavita Weiner RN Position: Samuel RN Supv Member Role: Primary Care Nurse Care Team Related Persons Name: USAMA BOB Address: home [address] [place], [place] Name: ALIYAH BOB Address: home [address] [place], [place] Name: MARCE MENDIOLA Address: home [address] [place] [address]
[2024-04-30 13:12] VITALS: BP 110/76; PULSE 121; TEMP 35.9; O2SAT 93; BMI 30.5
--- NOTE | 2024-04-30 13:12 | AM.OFFWIN_ITS ---
Intake Vital Signs 04/30/24 13:12 04/30/24 15:14 Height 5 ft Weight 156 lb BMI 30.5 BP 110/76 Blood Pressure Location Lt brachial Position Sitting Pulse 121 H 105 H Pulse Source Pulse Oximeter Pulse Oximeter Temp 96.7 F L Temp Source Temporal Artery Scan Pulse Oximetry (%) 93 Oxygen Delivery Method Room Air Intake Visit Reasons: Thick mucus coughing/some difficulty breathing Intake Note: Pt is here today for thick mucus coughing some dii breathing started 4 days ago Patient Tobacco Use Status: Former Tobacco user Allergies tramadol Allergy (Severe, Verified 04/30/24 14:14) stomach pains amoxicillin Allergy (Mild, Verified 04/30/24 14:14) negatively afftect brains. prednisone Adverse Reaction (Unknown, Uncoded 04/30/24 14:14) stomach upset Medication List - Last Reconciled 04/30/24 by MILY Lewis albuterol sulfate 2.5 mg (3 mL) inhalation Q6H albuterol sulfate 90 mcg/actuation (Ventolin HFA) 1 inh inhalation QID PRN budesonide-formoterol 160-4.5 mcg/actuation (Symbicort) 2 puffs inhalation Q12H Do you need a note to return to daycare/school/sports/work: No HPI HPI Comments History of Present Illness Details patient is a 38-year-old female in today for a sick visit. Patient reports she has history of asthma and feels that she is currently having an exacerbation. Has had episodes in the past week where she has been waking up from her sleep coughing with chest tightness. Patient has Flovent inhaler and albuterol inhaler which she has been using as prescribed. Feels like she is getting little relief. On exam patient has both Ventolin and ProAir inhaler with her which she states she has been using and did not know that there the same medication. Patient also has Flovent inhaler that was in 2019. Denies fever, denies chest pain, denies numbness, denies tingling. Denies shortness of breath. Patient is able to speak in full sentences. Does have dry cough. Does have upper wheeze bilaterally. States she used her albuterol and Ventolin inhaler while waiting for the provider to come into the office. Patient not in acute distress on physical exam. Does have bilateral wheeze of upper lobes. Heart sounds normal. [facility] Social History (System 12/19/23 @ 14:05 by Randi Chaparro) Alcohol intake: unknown Patient Tobacco Use Status: Former Tobacco user Review of Systems Const All systems reviewed & are unremarkable except as noted in HPI and below Physical Exam Vital Signs: Last Vital Signs Temp 96.7 F L 04/30/24 13:12 Pulse 121 H 04/30/24 13:12 BP 110/76 04/30/24 13:12 Pulse Ox 93 04/30/24 13:12 Oxygen Delivery Method Room Air 04/30/24 13:12 BMI result Body Mass Index 30.5 Const Other: Appearance: Alert.? Oriented X3.? No acute distress.? Head: Normocephalic. ENT: Pharynx normal.? Neck: Normal inspection.? Neck supple.? CVS: Normal heart rate and rhythm.? Pulses normal.? Respiratory: No respiratory distress.? bilateral wheeze upper lobes. Neuro: Oriented X 3.? No motor deficit.? No sensory deficit. CN 2-12 intact Assessment & Plan Assessment & Plan (1) Acute bronchitis: Comment: Patient had Flovent inhaler that was change to Symbicort. Patient has been given refill on albuterol nebulizer treat. Will also give patient Medrol pack and azithromycin. Patient has been educated on signs of worsening symptoms when to report to the walk-in or when to present to the ED Code(s): J20.9 - Acute bronchitis, unspecified Qualifiers: Bronchitis organism: unspecified organism Qualified Code(s): J20.9 - Acute bronchitis, unspecified Plan: Take your medications as prescribed. If you were prescribed antibiotics today, it is important that you take your medication to their entirety, do not skip any doses, do not finish them early. Follow-up with your primary care provider this week. Present to the emergency department with new or worsening symptoms. Such as fevers, chills, chest pain, shortness of breath, nausea, vomiting, dizziness, headache, vision changes, lethargy In case of emergency call 911 Orders: Orders SARS-CoV2/FLU/RSV Today J06.9 - Acute upper respiratory infection, unspecified Medications: New budesonide-formoterol 160-4.5 mcg/actuation (Symbicort) 2 puffs inhalation Q12H 10.2 grams 0RF azithromycin For 250 mg dose pack: take 500 mg today (day 1), then 250 mg for 4 days (days 2-5) PO 6 tabs 0RF Refilled albuterol sulfate 90 mcg/actuation (Ventolin HFA) 1 inh inhalation QID PRN 8.5 grams 1RF shortness of breath or wheezing albuterol sulfate 2.5 mg (3 mL) inhalation Q6H 90 mL 0RF J20.9 - Acute bronchitis, unspecified methylprednisolone (Medrol (Geovanni)) 4 mg PO DAILY 21 ea 0RF J20.9 - Acute bronchitis, unspecified Coding Level of Care Code Est Pt Level 3 (32722) Diagnoses Acute bronchitis, unspecified organism J20.9 Bronchitis organism: unspecified organism Time Spent (min) 26
[2024-04-30 15:14] VITALS: PULSE 105
== END 2024-04-30 14:47 | disposition home or self-care (01) ==
PROVIDERS: Visit Provider Nurse Practitioner Primary Care
DX: J20.9 Acute bronchitis, unspecified (principal)
CPT/HCPCS: 99213